=== PATIENT | female | born 1940 | race Caucasian/White ===

== ENCOUNTER 2016-10-08 08:00 | Emergency (ER) | payer MEDICARE, MEDICAID ==
--- NOTE | 2016-10-08 09:19 | ER Document Report ---
ED Fall - General Chief Complaint: Fall Stated Complaint: FALL/LUMBAR PAIN Time seen by provider: 09:13 Mode of Arrival: Medic Information source: Patient Notes: 75-year-old female presents to ED from [facility] via EMS after she stated she fell. Where her pain is has moved multiple times while she was here when I assessed her there was no tenderness except for to the right ankle which now does not hurt. TRAVEL OUTSIDE OF THE [place] IN LAST 30 DAYS: No - HPI Occurred: This morning Where: Care Home Context: Lost balance Associated symptoms: None Location of injury/pain: Lower extremity - Stated her right ankle hurts now the right ankle does not hurt the left ankle hurts neither one are swelling bruised or tender to palpation. Quality of pain: Achy - Related data Allergies/Adverse Reactions: No Known Allergies Allergy (Verified 04/09/15 12:40) Home Medications: Current Home Medications Cetirizine HCl [Zyrtec] 10 mg PO DAILY 10/08/16 [History] Clobetasol Propionate/Emoll [Clobetasol Emollnt 0.05% Foam] 1 applic TP BID [History] Diphenhydramine HCl [Allergy Relief] 25 mg PO Q6H PRN 10/08/16 [History] Lisinopril [Prinivil 10 mg Tablet] 10 mg PO DAILY 10/08/16 [History] Loperamide HCl [Loperamide] 1 mg PO PRN PRN 10/08/16 [History] Triamcinolone Acetonide [Aristocort 0.025% Cream 15 gm] 1 applic TP BID [History] Past Medical History - General Information source: Patient - Social History Smoking Status: Never Smoker Cigarette use (# per day): No Smoking Education Provided: No Frequency of alcohol use: None Drug Abuse: None Lives with: Care Home Family History: Reviewed & Not Pertinent - Past Medical History Cardiac Medical History: Reports: Hx Hypercholesterolemia, Hx Hypertension Pulmonary Medical History: Reports: Hx Pneumonia Endocrine Medical History: Reports: Hx Diabetes Mellitus Type 2 Renal/ Medical History: Reports: None Malignancy Medical History: Reports: None GI Medical History: Reports: Hx Gastroesophageal Reflux Disease Musculoskeltal Medical History: Reports None Skin Medical History: Reports None Psychiatric Medical History: Reports: Hx Bipolar Disorder, Hx Schizophrenia Traumatic Medical History: Reports: Hx Spine Fracture - Compression lumbar fracture Infectious Medical History: Reports: None Past Surgical History: Reports: Hx Tubal Ligation - Immunizations Hx Diphtheria, Pertussis, Tetanus Vaccination: Yes Hx Pneumococcal Vaccination: 04/23/10 Review of Systems - Review of Systems Constitutional: No symptoms reported EENT: No symptoms reported Cardiovascular: No symptoms reported Respiratory: No symptoms reported Gastrointestinal: No symptoms reported Genitourinary: No symptoms reported Female Genitourinary: No symptoms reported Musculoskeletal: Back pain, Other - States she has pain and a different area each time you go and assess the Skin: No symptoms reported Hematologic/Lymphatic: No symptoms reported Neurological/Psychological: No symptoms reported -: Yes All other systems reviewed and negative Physical Exam - Vital signs Vitals: Temp Pulse Resp BP Pulse Ox 98.5 F 67 16 180/60 H 96 10/08/16 08:20 10/08/16 08:20 10/08/16 08:20 10/08/16 08:20 10/08/16 08:20 Interpretation: Normal - General General appearance: Appears well, Alert - HEENT Head: Normocephalic, Atraumatic Eyes: Normal Pupils: PERRL - Respiratory Respiratory status: No respiratory distress Chest status: Nontender Breath sounds: Normal Chest palpation: Normal - Cardiovascular Rhythm: Regular Heart sounds: Normal auscultation Murmur: No - Abdominal Inspection: Normal Distension: No distension Bowel sounds: Normal Tenderness: Nontender Organomegaly: No organomegaly - Back Back: Normal, Nontender. No: Tender, Deformity/step-off, CVA tenderness, Vertebra tenderness - Extremities General upper extremity: Normal inspection, Nontender, Normal color, Normal ROM , Normal temperature General lower extremity: Normal inspection, Nontender, Normal color, Normal ROM , Normal temperature, Normal weight bearing. No: Ca's sign - Neurological Neuro grossly intact: Yes Cognition: Normal Orientation: AAOx4 [place] Coma Scale Eye Opening: Spontaneous [place] Coma Scale Verbal: Oriented [place] Coma Scale Motor: Obeys Commands [place] Coma Scale Total: 15 Speech: Normal Motor strength normal: LUE, RUE, LLE, RLE Sensory: Normal - Psychological Associated symptoms: Normal affect, Normal mood - Skin Skin Temperature: Warm Skin Moisture: Dry Skin Color: Normal Course - Vital Signs Vital signs: Temp Pulse Resp BP Pulse Ox 98.1 F 70 18 158/62 H 96 10/08/16 10:19 10/08/16 10:19 10/08/16 10:19 10/08/16 10:19 10/08/16 10:19 - Diagnostic Test Radiology reviewed: Image reviewed, Reports reviewed Discharge - Discharge Clinical Impression: Fall Qualifiers: Encounter type: initial encounter Qualified Code(s): W19.XXXA - Unspecified fall, initial encounter Low back pain Qualifiers: Chronicity: chronic Back pain laterality: unspecified Sciatica presence: without sciatica Qualified Code(s): M54.5 - Low back pain Condition: Stable Disposition: HOME-SNF (ED ONLY) Instructions: Acetaminophen, Ibuprofen (General) ([facility]) Additional Instructions: LOW BACK PAIN: Three out of every four people will have an episode of disabling back pain during their lifetime. Most commonly the pain is due to straining of the muscles and ligaments in the low back. Usual treatment includes: (1) Rest on a firm surface. Avoid lying on your stomach. (2) Ice pack the painful area. After a few days, gentle heat may be used intermittently to relax the area, or ice packs can be continued. (3) Medication may be needed -- muscle relaxers and antiinflammatory medicines are commonly used. (4) As the back improves, exercises are prescribed to strengthen the back and abdominal muscles. Your doctor will advise you on the proper care for your back at each stage in your recovery. You may be better in a few days -- or healing may take several weeks. If new symptoms of a "herniated disc" (radiation of pain, numbness, or tingling down the back of the leg or weakness in the leg) occur, you should be re-examined. Further testing may be necessary. Chronic Back Pain Chronic back pain (pain persisting longer than three months) is a common problem. A medical evaluation can look for herniated disc, arthritis, osteoporosis, tumors, and infections. But at least half the time, there's no obvious treatable cause. Anxiety and depression tend to worsen back pain. Ibuprofen or other anti-inflammatory medicine can help. A heating pad, used for 15-20 minutes at a time, can ease pain. For this type of back pain, narcotic medicines should be avoided. Muscle relaxers are rarely helpful unless you're having spasms. Activity is important. Find an aerobic exercise program that your back can tolerate. Too much rest makes back pain worse. Specific back exercises are usually prescribed to strengthen the back and abdominal muscles. Often, a physical therapist can help. Avoid heavy lifting, working while bent over, or standing with both knees straight. Most back pain patients do better with a firm mattress. If new symptoms of a "herniated disc" (radiation of pain, numbness, or tingling down the back of the leg or weakness in the leg) occur, you should be re-examined. ICE PACKS: Apply ice packs frequently against the painful area. Many different schedules are recommended, such as "20 minutes on, 20 minutes off" or "one hour ice, two hours rest." If you need to work, you may need to go longer between ice treatments. You should plan to have the area ice packed AT LEAST one fourth of the time. The ice should be applied over the wrap, tape, or splint, or over a layer of cloth -- not directly against the skin. Some ice bags have a built-in cloth and can be put directly on the skin. WARM PACKS: After approximately two days, apply gentle heat (such as a heating pad or hot water bottle) for about 20 to 30 minutes about every two hours -- at least four times daily. Warmth and elevation will help you make a more rapid recovery , and will ease the pain considerably. Do not use HOT heat, and never apply heat for longer than 30 minutes. The continuous heat can invisibly damage skin and muscles -- even when no burn is seen on the surface. Damaged muscles can make you MORE sore. Continue all previously ordered treatments and follow-up with primary doctor within the next 24-48 hours. FOLLOW-UP CARE: If you have been referred to a physician for follow-up care, call the physician s office for an appointment as you were instructed or within the next two days. If you experience worsening or a significant change in your symptoms, notify the physician immediately or return to the Emergency Department at any time for re-evaluation.
[2016-10-08 10:22] VITALS: BP 158/62
== END 2016-10-08 10:19 ==
LOC: ER 08:00
DX: M54.5 Low back pain (principal); W19.XXXA Unspecified fall, initial encounter; Z79.899 Other long term (current) drug therapy
CPT/HCPCS: 72110; 99284

== ENCOUNTER 2016-12-20 09:25 | Emergency (ER) | payer MEDICARE, MEDICAID ==
--- NOTE | 2016-12-20 09:52 | ER Document Report ---
ED Dizziness/Weakness - General Chief Complaint: General Weakness Stated Complaint: GENERAL WEAKNESS Time Seen by Provider: 12/20/16 09:35 Mode of Arrival: Medic Information source: Patient, Transfer Record Notes: Patient is a resident of [facility] [address] and half reports that this morning at 7: 00 patient was feeling fine and was given her usual medications including lorazepam and her blood pressure pill lisinopril. Patient around 9 became dizzy with increased drowsiness and her blood pressure at the time was 99/46 which prompted the staff to call EMS. Patient presently normotensive and denies any complaints. She reports she has had a cough for the past 2 days. TRAVEL OUTSIDE OF THE [place] IN LAST 30 DAYS: No - HPI Patient complains to provider of: Dizziness, Other - Increased fatigue, hypotension Onset: This morning Onset/Duration: Gone Quality of pain: No pain Pain Level: Denies Associated symptoms: Dizzy, Other - drowsiness. denies: Chest pain, Confused, Diarrhea, Nausea, Palpitations - Related Data Allergies/Adverse Reactions: No Known Allergies Allergy (Verified 04/09/15 12:40) Past Medical History - General Information source: Patient, Transfer Record, Outside Facility Records - Social History Smoking Status: Never Smoker Frequency of alcohol use: None Drug Abuse: None Lives with: [facility]-Way Family History: Reviewed & Not Pertinent - Past Medical History Cardiac Medical History: Reports: Hx Hypercholesterolemia, Hx Hypertension Pulmonary Medical History: Reports: Hx Pneumonia Denies: Hx Tuberculosis Endocrine Medical History: Reports: Hx Diabetes Mellitus Type 2 GI Medical History: Reports: Hx Gastroesophageal Reflux Disease Psychiatric Medical History: Reports: Hx Anxiety, Hx Bipolar Disorder, Hx Schizophrenia Traumatic Medical History: Reports: Hx Spine Fracture - Compression lumbar fracture Past Surgical History: Reports: Hx Tubal Ligation - Immunizations Hx Diphtheria, Pertussis, Tetanus Vaccination: Yes Hx Pneumococcal Vaccination: 04/23/10 Review of Systems - Review of Systems Constitutional: No symptoms reported. denies: Fever, Recent illness EENT: No symptoms reported Cardiovascular: Dizziness. denies: Chest pain, Palpitations Respiratory: Cough. denies: Short of breath Gastrointestinal: No symptoms reported. denies: Abdominal pain, Diarrhea, Nausea, Vomiting Genitourinary: No symptoms reported. denies: Dysuria, Flank pain Female Genitourinary: No symptoms reported Musculoskeletal: No symptoms reported. denies: Back pain Skin: No symptoms reported Hematologic/Lymphatic: No symptoms reported Neurological/Psychological: Other - drowsy. denies: Confusion, Lost consciousness, Headaches Physical Exam - Vital signs Vitals: Resp BP Pulse Ox 29 H 154/93 H 93 12/20/16 09:35 12/20/16 09:35 12/20/16 09:35 - General General appearance: Appears well, Alert In distress: None - HEENT Head: Normocephalic, Atraumatic Eyes: Normal Conjunctiva: Normal Pupils: PERRL Nasal: Normal Mouth/Lips: Normal Mucous membranes: Normal - Respiratory Respiratory status: No respiratory distress Chest status: Nontender Breath sounds: Normal. No: Rales, Rhonchi, Stridor, Wheezing Chest palpation: Normal - Cardiovascular Rhythm: Regular Heart sounds: S1 appreciated, S2 appreciated Murmur: No - Abdominal Inspection: Normal Distension: No distension Bowel sounds: Normal Tenderness: Nontender Organomegaly: No organomegaly - Back Back: Normal, Nontender. No: CVA tenderness - Extremities General upper extremity: Normal inspection, Normal ROM General lower extremity: Normal inspection, Normal ROM - Neurological Neuro grossly intact: Yes [place] Coma Scale Eye Opening: Spontaneous [place] Coma Scale Verbal: Oriented [place] Coma Scale Motor: Obeys Commands [place] Coma Scale Total: 15 - Psychological Associated symptoms: Normal affect, Normal mood - Skin Skin Temperature: Warm Skin Moisture: Dry Skin Color: Normal Course - Re-evaluation Re-evalutation: 12/20/16 09:54 spoke with Tarcey at [facility] that the patient was given her usual medications including Ativan and her blood pressure medicine around 7 this morning. Patient became dizzy with increased drowsiness around 9:00 and her blood pressure at the time was 99/46, which prompted her transfer to [facility]. Tracey patient's roommate did recently get admitted to the hospital, and is uncertain if this may be stressing patient out. - Vital Signs Vital signs: Temp Pulse Resp BP Pulse Ox 97.4 F 76 17 173/68 H 94 12/20/16 09:38 12/20/16 09:38 12/20/16 12:01 12/20/16 12:01 12/20/16 12:01 - Laboratory Result Diagrams: 12/20/16 09:38 12/20/16 09:38 Laboratory results interpreted by me: 05/30/17 05/30/17 05/30/17 09:38 09:38 11:11 RBC 3.23 L Hgb 10.8 L Hct 31.2 L Sodium 130.7 L Chloride 95 L Est GFR (Non-Af Amer) 55 L Glucose 174 H Creatine Kinase 28 L Urine Blood SMALL H Discharge - Discharge Clinical Impression: Cough, Wheezing, Hypotensive episode, Chronic hyponatremia Condition: Stable Disposition: [facility] Instructions: Hyponatremia ([facility]), Upper Respiratory Illness ([facility]), Inhaled Bronchodilators ([facility]) Additional Instructions: Your sodium level was mildly decreased today, with your primary doctor to have this reevaluated. You had mild wheezing with your cough today, use your nebulizer machine that you have at home as directed. Your blood pressure readings were normal to mildly elevated while here in the emergency department today. At home for house they reported that your blood pressure was low at 99/46, although we have not recorded any low blood pressure readings here today. Return as needed for any new or worsening symptoms. Call your doctor today to make follow up appointment for a recheck. Prescriptions: Albuterol Sulfate [Ventolin 0.083% Neb 2.5 mg/3 ml Ampul] 1 vial NEB Q4 PRN #30 vial PRN Reason: Prednisone [Deltasone 20 mg Tablet] 2 tab PO DAILY 5 Days Referrals: MAYA BHAKTA PA-C [NO LOCAL MD] - Follow up tomorrow
[2016-12-20 10:02] LABS: ABSOLUTE EOSINOPHILS # (AUTO) 0.2 10^3/uL (0.0-0.6); ABSOLUTE LYMPHOCYTES (AUTO) 0.6 10^3/uL (0.5-4.7); ABSOLUTE MONOCYTES (AUTO) 0.4 10^3/uL (0.1-1.4); ABSOLUTE NEUT (AUTO) 3.4 10^3/uL (1.7-8.2); BASOPHILS % (AUTO) 0.9 % (0-2); EOSINOPHILS % (AUTO) 3.9 % (0-6); HEMATOCRIT 31.2 % (36.0-47.0); HEMOGLOBIN 10.8 g/dL (12.0-15.5); HGB HCT DIFFERENCE 1.2; LYMPHOCYTES % (AUTO) 13.4 % (13-45); MEAN CORPUSCULAR HEMOGLOBIN 33.3 pg (27.0-33.4); MEAN CORPUSCULAR HGB CONC 34.5 g/dL (32.0-36.0); MEAN CORPUSCULAR VOLUME 96 fl (80-97); MONOCYTES % (AUTO) 7.8 % (3-13); RED BLOOD COUNT 3.23 10^6/uL (3.72-5.28); RED CELL DISTRIBUTION WIDTH 12.1 % (11.5-14.0); WHITE BLOOD COUNT 4.6 10^3/uL (4.0-10.5)
--- NOTE | 2016-12-20 10:06 | EKG REPORT ---
SEVERITY:- ABNORMAL ECG - SINUS RHYTHM LEFT VENTRICULAR HYPERTROPHY : Confirmed by: Torsten Steele 20-Dec-2016 10:05:42
--- NOTE | 2016-12-20 10:17 | RADIOLOGY REPORT (SQ) ---
EXAM DESCRIPTION: CHEST SINGLE VIEW COMPLETED DATE/TIME: 12/20/2016 10:05 am REASON FOR STUDY: cough COMPARISON: 08/25/2015 EXAM PARAMETERS: NUMBER OF VIEWS: One view. TECHNIQUE: Single frontal radiographic view of the chest acquired. RADIATION DOSE: NA LIMITATIONS: None. FINDINGS: LUNGS AND PLEURA: There appear to be chronic interstitial lung changes. There is lucency in the apices and in the right base. No pulmonary infiltrate or pleural effusion is present. MEDIASTINUM AND HILAR STRUCTURES: No masses. Contour normal. HEART AND VASCULAR STRUCTURES: Heart normal in size. Normal vasculature. BONES: No acute findings. HARDWARE: None in the chest. OTHER: No other significant finding. IMPRESSION: Chronic lung changes with interstitial changes and emphysematous changes in the apices a nd in the right base. TECHNICAL DOCUMENTATION: JOB ID: [id number]
[2016-12-20] MEDS ORDERED: IPRATROPIUM/ALBUTEROL 0.5-2.5 MG/3 ML AMPUL NEB ONE (10:21)
[2016-12-20 10:35] LABS: ALANINE AMINOTRANSFERASE 19 U/L (9-52); ALBUMIN 3.7 g/dL (3.5-5.0); ALKALINE PHOSPHATASE 44 U/L (38-126); ANION GAP 9 (5-19); ASPARTATE AMINO TRANSFERASE 19 U/L (14-36); BILIRUBIN,DIRECT 0.3 mg/dL (0.0-0.4); BILIRUBIN,TOTAL 0.6 mg/dL (0.2-1.3); BLOOD UREA NITROGEN 16 mg/dL (7-20); CALCIUM 9.2 mg/dL (8.4-10.2); CARBON DIOXIDE 27 mmol/L (22-30); CHLORIDE 95 mmol/L (98-107); CREATINE KINASE 28 U/L (30-135); CREATININE RESULT 0.98 mg/dL (0.52-1.25); GLUCOSE 174 mg/dL (75-110); MAGNESIUM 1.7 mg/dL (1.6-2.3); POTASSIUM 4.5 mmol/L (3.6-5.0); SODIUM 130.7 mmol/L (137-145); TOTAL PROTEIN 6.8 g/dL (6.3-8.2)
[2016-12-20 10:45] LABS: CREATINE KINASE MB 0.59 ng/mL (<4.55)
[2016-12-20 10:49] LABS: TROPONIN I < 0.012 ng/mL
[2016-12-20 11:40] LABS: APPEARANCE,URINE CLEAR; BILIRUBIN,URINE NEGATIVE (NEGATIVE); GLUCOSE, URINE NEGATIVE (NEGATIVE); KETONES,URINE NEGATIVE (NEGATIVE); LEUKOCYTE ESTERASE,URINE NEGATIVE (NEGATIVE); NITRITE,URINE NEGATIVE (NEGATIVE); PROTEIN,URINE NEGATIVE (NEGATIVE); URINE SPECIFIC GRAVITY 1.006; UROBILINOGEN,URINE NEGATIVE mg/dL (<2.0)
[2016-12-20 12:28] VITALS: BP 173/68
== END 2016-12-20 12:31 ==
LOC: ER 09:25
DX: R05 Cough (principal); R06.2 Wheezing; I95.9 Hypotension, unspecified; E87.1 Hypo-osmolality and hyponatremia; R53.1 Weakness; E78.00 Pure hypercholesterolemia, unspecified; I10 Essential (primary) hypertension; E11.9 Type 2 diabetes mellitus without complications; Z98.51 Tubal ligation status
CPT/HCPCS: 93005; 99285; 36415; 87086; 82553; 82550; 83735; 84443; 85025; 87088; 80053; 81001; 84484; 87186; 71010; 93010; A9270; J7620

== ENCOUNTER → 2017-01-10 | Outpatient (CLI) | payer MEDICARE, MEDICAID ==
[2017-01-11 07:49] LABS: ANION GAP 9 (5-19); BLOOD UREA NITROGEN 19 mg/dL (7-20); CALCIUM 9.2 mg/dL (8.4-10.2); CARBON DIOXIDE 25 mmol/L (22-30); CHLORIDE 96 mmol/L (98-107); CREATININE RESULT 1.02 mg/dL (0.52-1.25); GLUCOSE 93 mg/dL (75-110); POTASSIUM 4.4 mmol/L (3.6-5.0); SODIUM 129.9 mmol/L (137-145)
== END ==
LOC: OH 12:56
PROVIDERS: ATTEND Physician Assistant
DX: E87.1 Hypo-osmolality and hyponatremia (principal); I95.9 Hypotension, unspecified; N18.9 Chronic kidney disease, unspecified
CPT/HCPCS: 36415; 80048

== ENCOUNTER 2017-01-30 15:17 | Emergency (ER) | payer MEDICARE, MEDICAID ==
[2017-01-30] MEDS ORDERED: ASPIRIN 81 MG TABLET, CHEWABLE PO ONE (16:32)
[2017-01-30] MEDS ORDERED: CLONIDINE HCL 0.1 MG TABLET PO ONE ×2 (16:32→19:10)
--- NOTE | 2017-01-30 16:33 | ER Document Report ---
ED Medical Screen (RME) - General Chief Complaint: Blood Pressure Problem Stated Complaint: BLOOD PRESSURE CONCERNS Time Seen by Provider: 01/30/17 16:29 Mode of Arrival: Medic Information source: Patient, Emergency Med Personnel, Outside Facility Records Cannot obtain history due to: Dementia Notes: 76-year-old female history of dementia presents from care facility with concerns of a blood pressure 190/100, patient has a history of hypertension and is on lisinopril patient admits to chest pain but then when reevaluated admits to abdominal pain and then 1 reevaluate denies any pain I have greeted and performed a rapid initial assessment of this patient. A comprehensive ED assessment and evaluation of the patient, analysis of test results and completion of the medical decision making process will be conducted by additional ED providers. PHYSICAL EXAMINATION: GENERAL: Well-appearing, well-nourished and in no acute distress. HEAD: Atraumatic, normocephalic. EYES: Pupils equal round extraocular movements intact, conjunctiva are normal. ENT: Nares patent NECK: Normal range of motion LUNGS: No respiratory distress Musculoskeletal: Normal range of motion NEUROLOGICAL: Normal speech, normal gait. PSYCH: Normal mood, normal affect. SKIN: Warm, Dry, normal turgor, no rashes or lesions noted. TRAVEL OUTSIDE OF THE [place] IN LAST 30 DAYS: No - Related Data Allergies/Adverse Reactions: No Known Allergies Allergy (Verified 04/09/15 12:40) Past Medical History - Past Medical History Cardiac Medical History: Reports: Hx Hypercholesterolemia, Hx Hypertension Pulmonary Medical History: Reports: Hx Pneumonia Denies: Hx Tuberculosis Endocrine Medical History: Reports: Hx Diabetes Mellitus Type 2 Renal/ Medical History: Denies: Hx Peritoneal Dialysis GI Medical History: Reports: Hx Gastroesophageal Reflux Disease Psychiatric Medical History: Reports: Hx Anxiety, Hx Bipolar Disorder, Hx Schizophrenia Traumatic Medical History: Reports: Hx Spine Fracture - Compression lumbar fracture Past Surgical History: Reports: Hx Tubal Ligation - Immunizations Hx Diphtheria, Pertussis, Tetanus Vaccination: Yes
[2017-01-30] MEDS ORDERED: ONDANSETRON 4 MG TAB.RAPDIS PO ONE (16:40)
--- NOTE | 2017-01-30 17:25 | RADIOLOGY REPORT (SQ) ---
EXAM DESCRIPTION: CHEST SINGLE VIEW COMPLETED DATE/TIME: 01/30/2017 5:17 pm REASON FOR STUDY: htn COMPARISON: 12/20/2016 and 08/25/2015 EXAM PARAMETERS: NUMBER OF VIEWS: One view. TECHNIQUE: Single frontal radiographic view of the chest acquired. RADIATION DOSE: NA LIMITATIONS: None. FINDINGS: LUNGS AND PLEURA: Stable chronic lung change without new opacities, masses or pneumothorax . No pleural effusion. MEDIASTINUM AND HILAR STRUCTURES: No masses. Contour normal. HEART AND VASCULAR STRUCTURES: Heart normal in size. Normal vasculature. BONES: No acute findings. HARDWARE: None in the chest. OTHER: No other significant finding. IMPRESSION: NO ACUTE CARDIOPULMONARY PROCESS. NO SIGNIFICANT CHANGE FROM PRIOR STUDY. TECHNICAL DOCUMENTATION: JOB ID: [id number]
[2017-01-30 17:58] LABS: ABSOLUTE EOSINOPHILS # (AUTO) 0.2 10^3/uL (0.0-0.6); ABSOLUTE LYMPHOCYTES (AUTO) 1.3 10^3/uL (0.5-4.7); ABSOLUTE MONOCYTES (AUTO) 0.5 10^3/uL (0.1-1.4); ABSOLUTE NEUT (AUTO) 2.4 10^3/uL (1.7-8.2); BASOPHILS % (AUTO) 0.6 % (0-2); EOSINOPHILS % (AUTO) 4.1 % (0-6); HEMATOCRIT 35.2 % (36.0-47.0); HEMOGLOBIN 11.9 g/dL (12.0-15.5); HGB HCT DIFFERENCE 0.5; LYMPHOCYTES % (AUTO) 29.1 % (13-45); MEAN CORPUSCULAR HEMOGLOBIN 32.5 pg (27.0-33.4); MEAN CORPUSCULAR HGB CONC 33.9 g/dL (32.0-36.0); MEAN CORPUSCULAR VOLUME 96 fl (80-97); MONOCYTES % (AUTO) 10.7 % (3-13); RED BLOOD COUNT 3.67 10^6/uL (3.72-5.28); RED CELL DISTRIBUTION WIDTH 12.3 % (11.5-14.0); SEGMENTED NEUTROPHILS % (AUTO) 55.5 % (42-78); WHITE BLOOD COUNT 4.3 10^3/uL (4.0-10.5)
--- NOTE | 2017-01-30 18:04 | ER Document Report ---
ED Blood Pressure Problem - General Mode of Arrival: Medic Information source: Patient, Outside Facility Records TRAVEL OUTSIDE OF THE [place] IN LAST 30 DAYS: No - HPI Patient complains to provider of: High blood pressure Associated symptoms: Other - See above <JOEL DE ANDA - Last Filed: 01/30/17 19:13> <FIGUEROA MCDONALD - Last Filed: 01/30/17 23:06> - General Chief Complaint: Blood Pressure Problem Stated Complaint: BLOOD PRESSURE CONCERNS Time Seen by Provider: 01/30/17 16:29 Notes: Patient is a 76 year old female, with a past medical history including hypertension, who presents to the emergency department via EMS from [facility] for high blood pressure. Per [facility] patient had a blood pressure of 198/100 today. Family at bedside are unsure if patient has received her Lisinopril today and have seen the staff at [facility] administer wrong doses before. Family is also concerned about patient's chest congestion that has been there for a month, they believe she is not receiving any breathing treatments at the facility which are ordered as PRN. (JOEL DE ANDA) - Related Data Allergies/Adverse Reactions: No Known Allergies Allergy (Verified 04/09/15 12:40) Past Medical History - General Information source: Patient, Emergency Med Personnel, Outside Facility Records - Social History Smoking Status: Never Smoker Chew tobacco use (# tins/day): No Frequency of alcohol use: None Drug Abuse: None Family History: Reviewed & Not Pertinent Patient has suicidal ideation: No Patient has homicidal ideation: No - Past Medical History Cardiac Medical History: Reports: Hx Hypercholesterolemia, Hx Hypertension Pulmonary Medical History: Reports: Hx Pneumonia Endocrine Medical History: Reports: Hx Diabetes Mellitus Type 2 GI Medical History: Reports: Hx Gastroesophageal Reflux Disease Psychiatric Medical History: Reports: Hx Anxiety, Hx Bipolar Disorder, Hx Schizophrenia Traumatic Medical History: Reports: Hx Spine Fracture - Compression lumbar fracture Past Surgical History: Reports: Hx Tubal Ligation - Immunizations Hx Diphtheria, Pertussis, Tetanus Vaccination: Yes Hx Pneumococcal Vaccination: 04/23/10 <JOEL DE ANDA - Last Filed: 01/30/17 19:13> Review of Systems - Review of Systems Constitutional: No symptoms reported EENT: No symptoms reported Cardiovascular: See HPI, Other - HTN Respiratory: See HPI, Other - Congestion Gastrointestinal: No symptoms reported Genitourinary: No symptoms reported Female Genitourinary: No symptoms reported Musculoskeletal: No symptoms reported Skin: No symptoms reported Hematologic/Lymphatic: No symptoms reported Neurological/Psychological: No symptoms reported -: Yes All other systems reviewed and negative <JEOL DE ANDA - Last Filed: 01/30/17 19:13> Physical Exam - Vital signs Interpretation: Hypertensive - General General appearance: Appears well, Alert, Other - Slightly demented, pleasant - HEENT Head: Normocephalic, Atraumatic - Respiratory Respiratory status: No respiratory distress Chest status: Nontender Breath sounds: Rhonchi, Wheezing Chest palpation: Normal - Cardiovascular Rhythm: Regular Heart sounds: Normal auscultation Murmur: No - Back Back: Normal, Nontender - Extremities General upper extremity: Normal inspection General lower extremity: Normal inspection - Neurological Neuro grossly intact: Yes Cognition: Normal Orientation: AAOx4 [place] Coma Scale Eye Opening: Spontaneous B[place] Coma Scale Verbal: Oriented Bienvenido Coma Scale Motor: Obeys Commands Bienvenido Coma Scale Total: 15 Speech: Normal - Psychological Associated symptoms: Normal affect, Normal mood - Skin Skin Temperature: Warm Skin Moisture: Dry Skin Color: Normal <JOEL DE ANDA - Last Filed: 01/30/17 19:13> Course - Laboratory Result Diagrams: 01/30/17 17:46 01/30/17 17:46 <JOEL DE ANDA - Last Filed: 01/30/17 19:13> - Laboratory Result Diagrams: 01/30/17 17:46 01/30/17 17:46 - Diagnostic Test Radiology reviewed: Image reviewed, Reports reviewed - Changes - EKG Interpretation by Me EKG shows normal: Sinus rhythm, [place], Intervals, QRS Complexes, ST-T Waves Rate: Normal - 69 Rhythm: NSR Voltage: Consistant with LVH <FIGUEROA MCDONALD - Last Filed: 01/30/17 23:06> - Re-evaluation Re-evalutation: 01/30/17 21:02 Blood pressure is now 152/60 after 2 doses of clonidine 0.1 mg. Lungs are almost clear now after breathing treatments. 01/30/17 23:05 The patient's oxygen saturation did desaturate when she got up and walk to the bathroom. She was put back on oxygen by the nurse. I turned the oxygen off and watch her for quite some time and her O2 saturations only went down to 93% on room air. I have just now gone back to check on her probably 45 minutes after the first time I turned off her oxygen and she is still at 93% saturation on room air. ( FIGUEROA MCDONALD) - Vital Signs Vital signs: Temp Pulse Resp BP Pulse Ox 22 H 136/53 H 89 L 01/30/17 22:09 01/30/17 22:09 01/30/17 22:28 - Laboratory Laboratory results interpreted by me: 01/30/17 01/30/17 17:46 17:46 RBC 3.67 L Hgb 11.9 L Hct 35.2 L Sodium 125.1 L Chloride 89 L Est GFR (Non-Af Amer) 54 L Glucose 122 H Creatine Kinase 28 L Discharge <JOEL DE ANDA - Last Filed: 01/30/17 19:13> <FIGUEROA MCDONALD - Last Filed: 01/30/17 23:06> - Discharge Clinical Impression: High blood pressure Qualifiers: Hypertension type: essential hypertension Qualified Code(s): I10 - Essential ( primary) hypertension COPD (chronic obstructive pulmonary disease) Qualifiers: COPD type: unspecified COPD Qualified Code(s): J44.9 - Chronic obstructive pulmonary disease, unspecified Condition: Stable Disposition: HOME, SELF-CARE Additional Instructions: Please give the breathing treatments every 4 hours as needed. You will need to listen to her lungs to determine if she needs the breathing treatments. Check blood pressure tomorrow and if it remains elevated, call her primary care provider to discuss medication changes. RETURN TO THE EMERGENCY ROOM IF ANY NEW OR WORSENING SYMPTOMS. Referrals: KYAW LICONA, DIRECTOR OF DIVERSITY AND IN[facility] [Primary Care Provider] - Follow up as needed Scribe Attestation: 01/30/17 21:05 I personally performed the services described in the documentation, reviewed and edited the documentation which was dictated to the scribe in my presence, and it accurately records my words and actions. (FIGUEROA MCDONALD) Scribe Documentation - Scribe Written by Lior:: lior Forde, 01/30/17, 191 acting as scribe for :: Margarita <JOEL DE ANDA - Last Filed: 01/30/17 19:13>
[2017-01-30 18:15] LABS: ALANINE AMINOTRANSFERASE 25 U/L (9-52); ALBUMIN 4.2 g/dL (3.5-5.0); ALKALINE PHOSPHATASE 65 U/L (38-126); ANION GAP 11 (5-19); ASPARTATE AMINO TRANSFERASE 19 U/L (14-36); BILIRUBIN,DIRECT 0.3 mg/dL (0.0-0.4); BILIRUBIN,TOTAL 0.4 mg/dL (0.2-1.3); BLOOD UREA NITROGEN 15 mg/dL (7-20); CARBON DIOXIDE 25 mmol/L (22-30); CHLORIDE 89 mmol/L (98-107); CREATINE KINASE 28 U/L (30-135); CREATININE RESULT 0.99 mg/dL (0.52-1.25); GLUCOSE 122 mg/dL (75-110); POTASSIUM 4.7 mmol/L (3.6-5.0); SODIUM 125.1 mmol/L (137-145); TOTAL PROTEIN 7.7 g/dL (6.3-8.2)
[2017-01-30 18:25] LABS: CREATINE KINASE MB 0.73 ng/mL (<4.55)
[2017-01-30 18:27] LABS: TROPONIN I < 0.012 ng/mL
[2017-01-30] MEDS ORDERED: IPRATROPIUM/ALBUTEROL 0.5-2.5 MG/3 ML AMPUL NEB ONE ×2 (18:30→22:04)
[2017-01-30] MEDS ORDERED: ALBUTEROL SULFATE 0.083% NEB 2.5 MG/3 ML AMPUL NEB ONE ×2 (19:10→20:18)
--- NOTE | 2017-01-30 21:12 | EKG REPORT ---
SEVERITY:- ABNORMAL ECG - SINUS RHYTHM LEFT VENTRICULAR HYPERTROPHY ANTERIOR Q WAVES, POSSIBLY DUE TO LVH : Confirmed by: Tj Huber MD 30-Jan-2017 21:12:20
[2017-01-31 04:21] VITALS: BP 128/49
== END 2017-01-31 04:25 | disposition home or self-care (01) ==
LOC: ER 15:17
DX: J44.9 Chronic obstructive pulmonary disease, unspecified (principal); I10 Essential (primary) hypertension
CPT/HCPCS: 93005; 94640 ×2; 99284; 36415; 82553; 82550; 85025; 80053; 84484; 85379; 71010; 93010; A9270 ×5; J7620; S0119

== ENCOUNTER 2017-02-22 10:38 | Inpatient (IN) | payer MEDICARE, MEDICAID ==
--- NOTE | 2017-02-22 11:00 | RADIOLOGY REPORT (SQ) ---
EXAM DESCRIPTION: CT HEAD WITHOUT COMPLETED DATE/TIME: 02/22/2017 10:46 am REASON FOR STUDY: s/s stroke COMPARISON: 08/25/2015 TECHNIQUE: Axial images acquired through the brain without intravenous contrast. Images reviewed wi th bone, brain and subdural windows. Images stored on PACS. All CT scanners at this facility use dose modulation, iterative reconstruction, and/or weight based d osing when appropriate to reduce radiation dose to as low as reasonably achievable (ALARA). [facility]: Dose Right [facility]: CareDose [facility]: Dose Right [facility]: Teradose 4D [facility]: Smart Path101 RADIATION DOSE: Up-to-date CT equipment and radiation dose reduction techniques were employed. CTDIv ol: 48.6 - 49.0 mGy. DLP: 1639 mGy-cm. mGy. LIMITATIONS: None. FINDINGS: VENTRICLES: Normal size and contour. CEREBRUM: Cortical atrophy. Areas of decreased attenuation in the white matter tracts. 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 There is questionable loss of werner/ white differentiation in righ t parietal lobe. No masses. No hemorrhage. No midline shift. No evidence for acute infarction. CEREBELLUM: No masses. No hemorrhage. No alteration of density. No evidence for acute infarction. EXTRAAXIAL SPACES: No fluid collections. No masses. ORBITS AND GLOBE: No intra- or extraconal masses. Normal contour of globe without masses. CALVARIUM: No fracture. PARANASAL SINUSES: No fluid or mucosal thickening. SOFT TISSUES: No mass or hematoma. OTHER: No other significant finding. IMPRESSION: 1. Involutional changes of aging with chronic microvascular ischemic disease. 2. Questionable loss of werner/white differentiation in the right parietal lobe could indicate a devel oping infarct. Correlate clinically. TECHNICAL DOCUMENTATION: JOB ID: [id number] Quality ID # [id number]: Final reports with documentation of one or more dose reduction techniques (e.g., Au tomated exposure control, adjustment of the mA and/or kV according to patient size, use of iterative reconstruction technique) 2010 [employer]- All Rights Reserved
--- NOTE | 2017-02-22 11:05 | ER Document Report ---
ED Neuro Symptoms/Deficit - General Stated Complaint: POSSIBLE STROKE Time Seen by Provider: 02/22/17 10:58 Mode of Arrival: Stretcher Information source: Patient, Emergency Med Personnel TRAVEL OUTSIDE OF THE [place] IN LAST 30 DAYS: No - HPI Patient complains to provider of: Paralysis Onset: This morning - 930 Awoke with symptoms: No Duration: Better Baseline Gait: Walks w/o assistance New weakness: R facial Notes: Patient is a 76-year-old female brought to the emergency room by EMS for possible stroke, patient resides at [facility], her sister brought her home yesterday for a visit, she woke up this morning and everything seemed normal, she walked out to the back deck sat down in a chair, her sister started taking nail serbian off of her hands when she noticed her right arm kept slipping off the chair, she looked at patient and attempted to get a response for her but she did not respond verbally which is typical of patient at times, however patient's sister called EMS, when they arrived they reported right-sided flaccid paralysis, which resolved while in route to the hospital, patient remains nonverbal, has a left-sided gaze, with slight right-sided facial droop, however she is moving her extremities without difficulty, since patient is nonverbal at this point in time it is difficult to obtain further history - Related Data Allergies/Adverse Reactions: No Known Allergies Allergy (Verified 04/09/15 12:40) Home Medications: Current Home Medications Acetaminophen [Mapap] 500 mg PO Q4HP PRN MDD 199902/22/17 [History] Albuterol Sulfate [Albuterol Sulfate 2.5mg/3 mL] 1 vial IH Q4HP PRN 02/22/17 [ History] Aripiprazole [Abilify 15 mg Tablet] 15 mg PO Q12A 02/22/17 [History] Cetirizine HCl [Zyrtec] 10 mg PO DAILYP PRN 02/22/17 [History] Cyanocobalamin (Vitamin B-12) [Vitamin B-12 Inj 1000 Mcg/1 ml Vial] 1,000 mcg IM .MONTHLY 02/22/17 [History] Diphenhydramine HCl [Benadryl] 25 mg PO Q6HP PRN 02/22/17 [History] Divalproex Sodium [Depakote] 125 mg PO QPM 02/22/17 [History] Docusate Sodium [Colace 100 mg Capsule] 100 mg PO DAILY 02/22/17 [History] Lisinopril [Zestril] 10 mg PO QAM 02/22/17 [History] Loperamide HCl [Loperamide] 2 mg PO DAILYP PRN 02/22/17 [History] Lorazepam [Ativan 0.5 mg Tablet] 0.5 mg PO Q8A 02/22/17 [History] Magnesium Hydroxide [Milk of Magnesia 30 ml Udcup] 30 ml PO QPMP PRN 02/22/17 [ History] Omeprazole 40 mg PO QAM 02/22/17 [History] Quetiapine Fumarate [Seroquel 100 mg Tablet] 100 mg PO Q8A 02/22/17 [History] Simvastatin [Zocor 10 mg Tablet] 10 mg PO QPM 02/22/17 [History] Trihexyphenidyl HCl 1 mg PO Q12A 02/22/17 [History] Past Medical History - General Information source: Relative, Emergency Med Personnel - Social History Smoking Status: Unknown if Ever Smoked Family History: Reviewed & Not Pertinent - Past Medical History Cardiac Medical History: Reports: Hx Hypercholesterolemia, Hx Hypertension Pulmonary Medical History: Reports: Hx Pneumonia Denies: Hx Tuberculosis Endocrine Medical History: Reports: Hx Diabetes Mellitus Type 2 Renal/ Medical History: Denies: Hx Peritoneal Dialysis GI Medical History: Reports: Hx Gastroesophageal Reflux Disease Psychiatric Medical History: Reports: Hx Anxiety, Hx Bipolar Disorder, Hx Schizophrenia Traumatic Medical History: Reports: Hx Spine Fracture - Compression lumbar fracture Past Surgical History: Reports: Hx Tubal Ligation - Immunizations Hx Diphtheria, Pertussis, Tetanus Vaccination: Yes Hx Pneumococcal Vaccination: 04/23/10 Review of Systems - Review of Systems -: Yes ROS unobtainable due to patient's medical condition Neurological/Psychological: See HPI Physical Exam - Vital signs Interpretation: Normal - General General appearance: Alert - HEENT Head: Normocephalic, Atraumatic Eyes: Normal Extraocular movements intact: No - left gaze Pupils: PERRL Mucous membranes: Normal Neck: Normal - Respiratory Respiratory status: No respiratory distress Chest status: Nontender Breath sounds: Normal Chest palpation: Normal - Cardiovascular Rhythm: Regular Heart sounds: Normal auscultation Murmur: No - Abdominal Inspection: Normal Distension: No distension Bowel sounds: Normal Tenderness: Nontender Organomegaly: No organomegaly - Extremities General upper extremity: Normal inspection General lower extremity: Normal inspection - Neurological B[place]ven[place] Coma Scale Eye Opening: Spontaneous [place] Coma Scale Verbal: None [place] Coma Scale Motor: Obeys Commands [place] Coma Scale Total: 11 Cranial nerves: Facial palsy - right side, Gaze palsy Additional motor exam normals: Involuntary movements - facial, tardive dyskinesia - Skin Skin Temperature: Warm Skin Moisture: Dry Skin Color: Pale Course - Re-evaluation Re-evalutation: 02/22/17 18:13 Patient symptoms preceding emergency room visit consistent with acute CVA/TIA, at time of my evaluation she continues to have mild right-sided deficits, particularly facial droop, therefore patient was discussed with the hospitalist who agrees to admit for further evaluation and treatment - Laboratory Result Diagrams: 02/22/17 11:25 02/22/17 11:25 - Diagnostic Test Radiology reviewed: Image reviewed, Reports reviewed - EKG Interpretation by Me EKG shows normal: Sinus rhythm Rate: Normal Rhythm: NSR When compared to previous EKG there are: No significant change - Transfer of Care Care transferred to following provider: Dr Shannon Critical Care Note - Critical Care Note Total time excluding time spent on procedures (mins): 30 Comments: Patient arrived as a stroke alert via EMS, with right-sided deficits which appear to be resolving ED Alteplase Inc/Exc Criteria - Date/Time patient last known well: Date/Time: 02/22/2017 0930 - Date/Time patient arrived in ED: _: 02/22/2017 - Inclusion Criteria: 1: Patient presented to ED within 3 hours of acute ischemic stroke symptom onset ? -: Yes 2: Did baseline CT exclude intracranial hemorrhage and/or other risk factors? -: Yes 3: Is the age of the patient 18 years of age or greater? -: Yes : If any of the above questions are answered "NO" then stop, patient is not a candidate for Alteplase, : If all of the above questions are answered "YES" then continue with Exclusion Criteria. - Exclusion Criteria: 1: Is there evidence of intracranial hemorrhage on baseline CT? -: No 2: Is there suspicion of subarachnoid hemorrhage (even if CT negative)? -: No 3: Is there a history of serious head trauma, recent previous stroke or AZ within 3 months? -: No 4: Does the patient have a clinical presentation consistent with AZ or post-AZ pericarditis? -: No 5: Is there history of intracranial hemorrhage? -: No 6: On repeated measurement is Systolic BP greater than 185mmHg or Diastolic BP greater that 110 mmHg and is aggressive treatment needed to reduce blood pressure to these limits (e.g. constant infusion of an anti-hypertensive)? -: No 7: Did the patient awake with stroke symptoms? -: No 8: Has the patient had a lumbar puncture or an arterial puncture at a non- compressile site within 7 days? -: No 9: With in the last 14 days did the patient have surgery or major trauma? -: No 10: Is the patient or less than 2 weeks? -: No 11: Was there any active bleeding or acute trauma? -: No 12: Does the patient have intracranial neoplasm, arteriovenous malformation or aneurysm? -: No 13: Does the patient have abnormal glucose (less than 50 or greater than 400mg/ dl)? Record glucose in Comment. -: No 14: Patient has rapidly improving symptoms at the time Alteplase is to be Administered. -: Yes 15: Does the patient have any risks for bleeding, including but not limited to: a.: Current use of Coumadin with PT greater than 15 seconds or INR greater than 1.7. b.: Current use of Pradaxa (Dabigatran). c.: Heparin administereed within the past 48 hours and PTT elevated. d.: Platelet count less than 100,000/mm. e.: Major surgery or serious trauma within 14 days. f.: Gastrointestinal or gynecological urinary bleeding within 14 days. g.: Myocardial Infarction (AZ) within 3 months. -: No : If the answer to any of the above questions is "YES" then stop, the patient is not a candidate for Alteplase. : If the answer to all of the above questions is "NO" then the patient may be eligible for the Administration of Alteplase. : If the patient is noted to have seizure activity at onset of Stroke symptoms; Consult Neurologist for further evaluation. - The patient is: -: Included and is eligible to receive Alteplase. *Initiate bed placement at higher level of care* --: No Reviewd risks & benefits of thrombolytic therapy: I have reviewed the risks and benefits of thrombolytic therapy with the patient and/or his/her family. -: Excluded and not eligible to receive Alteplase for the above exclusions. --: Yes - symptoms improving -: Excluded and not eligible to receive Alteplase for other reasons (specify in comments): - Diagnosis of TIA: -: Patient presented with transient symptoms that are now resolved and no other neurologic findings are currently present. List symptoms in comments. -: Yes -: Patient is NOT a candidate for tPA. -: Yes -: ____(put name in comment) has been consulted for admission and continued evaluation of risk factor assessment. Comment: Shannon Discharge - Discharge Clinical Impression: TIA (transient ischemic attack) Qualifiers: Transient cerebral ischemia type: unspecified Qualified Code(s): G45.9 - Transient cerebral ischemic attack, unspecified Condition: Fair Disposition: ADMITTED OBSERVATION Admitting Provider: Hospitalist Unit Admitted: [facility]
[2017-02-22 11:35] LABS: ABSOLUTE LYMPHOCYTES (AUTO) 0.3 10^3/uL (0.5-4.7); ABSOLUTE MONOCYTES (AUTO) 0.3 10^3/uL (0.1-1.4); ABSOLUTE NEUT (AUTO) 3.5 10^3/uL (1.7-8.2); BASOPHILS % (AUTO) 0.5 % (0-2); EOSINOPHILS % (AUTO) 0.6 % (0-6); HEMATOCRIT 32.5 % (36.0-47.0); HEMOGLOBIN 11.7 g/dL (12.0-15.5); HGB HCT DIFFERENCE 2.6; LYMPHOCYTES % (AUTO) 7.4 % (13-45); MEAN CORPUSCULAR HEMOGLOBIN 33.9 pg (27.0-33.4); MEAN CORPUSCULAR HGB CONC 35.9 g/dL (32.0-36.0); MEAN CORPUSCULAR VOLUME 95 fl (80-97); MONOCYTES % (AUTO) 6.1 % (3-13); RED BLOOD COUNT 3.44 10^6/uL (3.72-5.28); RED CELL DISTRIBUTION WIDTH 12.4 % (11.5-14.0); SEGMENTED NEUTROPHILS % (AUTO) 85.4 % (42-78); WHITE BLOOD COUNT 4.1 10^3/uL (4.0-10.5)
[2017-02-22 11:40] LABS: PARTIAL THROMBOPLASTIN TIME 22.3 SEC (23.5-35.8)
--- NOTE | 2017-02-22 11:42 | RADIOLOGY REPORT (SQ) ---
EXAM DESCRIPTION: CHEST SINGLE VIEW COMPLETED DATE/TIME: 02/22/2017 11:34 am REASON FOR STUDY: s/s stroke COMPARISON: 01/30/2017 EXAM PARAMETERS: NUMBER OF VIEWS: One view. TECHNIQUE: Single frontal radiographic view of the chest acquired. RADIATION DOSE: NA LIMITATIONS: None. FINDINGS: LUNGS AND PLEURA: Chronic interstitial lung changes are present. These findings are stabl e. There is no acute infiltrate or pleural effusion. MEDIASTINUM AND HILAR STRUCTURES: No masses. Contour normal. HEART AND VASCULAR STRUCTURES: Heart size is borderline. There is no tahira CHF. BONES: No acute findings. HARDWARE: None in the chest. OTHER: No other significant finding. IMPRESSION: Borderline cardiomegaly with chronic interstitial lung changes. TECHNICAL DOCUMENTATION: JOB ID: [id number]
[2017-02-22 11:46] LABS: PROTHROMBIN TIME 12.9 SEC (11.4-15.4)
[2017-02-22 11:50] LABS: ALANINE AMINOTRANSFERASE 22 U/L (9-52); ALBUMIN 3.9 g/dL (3.5-5.0); ALKALINE PHOSPHATASE 53 U/L (38-126); ANION GAP 10 (5-19); ASPARTATE AMINO TRANSFERASE 18 U/L (14-36); BILIRUBIN,DIRECT 0.3 mg/dL (0.0-0.4); BILIRUBIN,TOTAL 0.5 mg/dL (0.2-1.3); BLOOD UREA NITROGEN 12 mg/dL (7-20); CALCIUM 9.2 mg/dL (8.4-10.2); CARBON DIOXIDE 24 mmol/L (22-30); CHLORIDE 92 mmol/L (98-107); CREATINE KINASE 34 U/L (30-135); CREATININE RESULT 0.99 mg/dL (0.52-1.25); GLUCOSE 166 mg/dL (75-110); POTASSIUM 4.4 mmol/L (3.6-5.0); TOTAL PROTEIN 7.2 g/dL (6.3-8.2)
[2017-02-22 11:59] LABS: CREATINE KINASE MB 0.46 ng/mL (<4.55)
[2017-02-22 12:02] LABS: TROPONIN I < 0.012 ng/mL
[2017-02-22] MEDS ORDERED: LABETALOL HCL INJ 20 MG/4 ML DISP.SYRIN IV ONE (13:26)
[2017-02-22] MEDS ORDERED: LORAZEPAM INJ 2 MG/1 ML VIAL IV ONE ×2 (13:29→15:14)
--- NOTE | 2017-02-22 13:35 | EKG REPORT ---
SEVERITY:- ABNORMAL ECG - SINUS RHYTHM PROBABLE LEFT ATRIAL ABNORMALITY LEFT VENTRICULAR HYPERTROPHY ANTERIOR Q WAVES, POSSIBLY DUE TO LVH : Confirmed by: Tj Huber MD 22-Feb-2017 13:34:52
[2017-02-22] MEDS ORDERED: GLUCAGON,HUMAN RECOMB 1 MG INJ SUBCUT PRN (13:54)
[2017-02-22] MEDS ORDERED: DEXTROSE 50%-WATER 25 GM/50 ML DISP.SYRIN IV PRN ×2 (13:54)
[2017-02-22] MEDS ORDERED: DEXTROSE 40% GEL 15 GM TUBE PO PRN ×2 (13:54)
[2017-02-22] MEDS ORDERED: ONDANSETRON HCL INJ/PF 4 MG/2 ML SDV IV PRN (13:54)
[2017-02-22 14:51] LABS: APPEARANCE,URINE CLEAR; BILIRUBIN,URINE NEGATIVE (NEGATIVE); GLUCOSE, URINE NEGATIVE (NEGATIVE); KETONES,URINE NEGATIVE (NEGATIVE); LEUKOCYTE ESTERASE,URINE NEGATIVE (NEGATIVE); NITRITE,URINE NEGATIVE (NEGATIVE); PROTEIN,URINE NEGATIVE (NEGATIVE); URINE SPECIFIC GRAVITY 1.005; UROBILINOGEN,URINE NEGATIVE mg/dL (<2.0)
[2017-02-22] MEDS: HEPARIN SOD (PORCINE) 5,000 UNIT/ML 1 ML SYRINGE SUBCUT SCH ×2 (14:53→22:29)
[2017-02-22] MEDS ORDERED: ASPIRIN 300 MG SUPP, RECTAL PR SCH (15:00)
[2017-02-22] MEDS ORDERED: (PENDING PHARMACY ID) (Cetirizine Hcl [Zyrtec] 10 MG) PO PRN (15:12)
[2017-02-22] MEDS ORDERED: DIPHENHYDRAMINE HCL 50 MG/ML VIAL IV ONE (15:13)
[2017-02-22] MEDS ORDERED: CETIRIZINE 10 MG TABLET PO PRN (15:43)
[2017-02-22] MEDS ORDERED: ASPIRIN 81 MG TABLET, CHEWABLE PO ONE (16:22)
[2017-02-22] MEDS ORDERED: QUETIAPINE FUMARATE 100 MG TABLET PO ONE (16:30)
[2017-02-22 16:41] LABS: CREATINE KINASE MB 0.77 ng/mL (<4.55)
[2017-02-22 16:45] LABS: TROPONIN I < 0.012 ng/mL
--- NOTE | 2017-02-22 16:50 | PDOC H&P ---
History of Present Illness Admission Date/PCP: 02/22/17 13:05 MAYA BHAKTA PA-C History of Present Illness: JÚNIOR LICONA is a 76 year old female with a past medical history of hypertension, schizophrenia, hyperlipidemia, and questionable mental retardationWho presents to the emergency department in the company of her sister via EMS. Sister reports that she was taking nail thai off of her fingernails when patient began having difficulty using her left hand. She then states that her eyes rolled into the back of her head and she has not been talking since that time. She reports that since approximate this happened at 930 this morning and she is only now when I saw her at 3 PM speaking. She reports that patient has been unable to care for herself last 5 years. She reports that over the last several months she is going more feeble. Patient is referred to the hospitalist service for likely CVA. Past Medical History Cardiac Medical History: Reports: Hyperlipidema, Hypertension Pulmonary Medical History: Reports: Pneumonia Denies: Tuberculosis Endocrine Medical History: Reports: Diabetes Mellitus Type 2 GI Medical History: Reports: Gastroesophageal Reflux Disease Psychiatric Medical History: Reports: Bipolar Disorder, Other - Schizophrenia schizophrenia Hematology: Reports: Anemia Past Surgical History Past Surgical History: Reports: Tubal Ligation, Other - Cataract surgery Social History Information Source: Relative Smoking Status: Never Smoker Frequency of Alcohol Use: None Hx Recreational Drug Use: No Hx Prescription Drug Abuse: No - Advance Directive Resuscitation Status: Full Code Surrogate healthcare decision maker:: Ayanna Luu, sister Family History Family History: DM, Hyperlipidemia, Hypertension, Malignancy, Other - Accident Parental Family History Reviewed: Yes Children Family History Reviewed: Yes Sibling(s) Family History Reviewed.: Yes Medication/Allergy Home Medications: Acetaminophen [Mapap] 500 mg PO Q4HP PRN MDD 199902/22/17 Albuterol Sulfate [Albuterol Sulfate 2.5mg/3 mL] 1 vial IH Q4HP PRN 02/22/17 Aripiprazole [Abilify 15 mg Tablet] 15 mg PO Q12A 02/22/17 Cetirizine HCl [Zyrtec] 10 mg PO DAILYP PRN 02/22/17 Cyanocobalamin (Vitamin B-12) [Vitamin B-12 Inj 1000 Mcg/1 ml Vial] 1,000 mcg IM .MONTHLY 02/22/17 Diphenhydramine HCl [Benadryl] 25 mg PO Q6HP PRN 02/22/17 Divalproex Sodium [Depakote] 125 mg PO QPM 02/22/17 Docusate Sodium [Colace 100 mg Capsule] 100 mg PO DAILY 02/22/17 Lisinopril [Zestril] 10 mg PO QAM 02/22/17 Loperamide HCl [Loperamide] 2 mg PO DAILYP PRN 02/22/17 Lorazepam [Ativan 0.5 mg Tablet] 0.5 mg PO Q8A 02/22/17 Magnesium Hydroxide [Milk of Magnesia 30 ml Udcup] 30 ml PO QPMP PRN 02/22/17 Omeprazole 40 mg PO QAM 02/22/17 Quetiapine Fumarate [Seroquel 100 mg Tablet] 100 mg PO Q8A 02/22/17 Simvastatin [Zocor 10 mg Tablet] 10 mg PO QPM 02/22/17 Trihexyphenidyl HCl 1 mg PO Q12A 02/22/17 Allergies/Adverse Reactions: No Known Allergies Allergy (Verified 04/09/15 12:40) Review of Systems ROS unobtainable: Due to mental status Physical Exam Vital Signs: Temp Pulse Resp BP Pulse Ox 97.8 F 19 198/93 H 97 02/22/17 11:00 02/22/17 13:07 02/22/17 13:07 02/22/17 13:07 Intake & Output 02/21/17 02/22/17 02/23/17 06:59 06:59 06:59 Weight 58.4 kg General appearance: PRESENT: mild distress, well-developed, well-nourished Exam: Patient is poorly cooperative with exam Head exam: PRESENT: atraumatic, normocephalic Eye exam: PRESENT: conjunctiva pink, EOMI, PERRLA. ABSENT: scleral icterus Ear exam: PRESENT: normal external ear exam Mouth exam: PRESENT: moist, tongue midline, other - Rhythmic mouth and jaw movements Teeth exam: PRESENT: edentulous Neck exam: ABSENT: carotid bruit, JVD, lymphadenopathy, meningismus, tenderness , thyromegaly, tracheal deviation Respiratory exam: PRESENT: clear to auscultation jorge, symmetrical, unlabored. ABSENT: accessory muscle use, crackles, rales, retraction, rhonchi, stridor, tachypnea, wheezes Cardiovascular exam: PRESENT: RRR, +S1, +S2. ABSENT: diastolic murmur, gallop, rubs, systolic murmur Pulses: PRESENT: normal dorsalis pedis pul Vascular exam: PRESENT: normal capillary refill GI/Abdominal exam: PRESENT: Infante's sign, normal bowel sounds, soft. ABSENT: distended, firm, guarding, mass, organolmegaly, rebound, rigid, tenderness Rectal exam: PRESENT: deferred Extremities exam: PRESENT: full ROM. ABSENT: calf tenderness, clubbing, pedal edema Neurological exam: PRESENT: alert, awake, CN II-XII grossly intact, motor sensory deficit - Mild right-sided weakness. ABSENT: oriented to person, oriented to place, oriented to time - is, oriented to situation Psychiatric exam: PRESENT: agitated, anxious, flat affect Skin exam: PRESENT: dry, intact, warm. ABSENT: cyanosis, rash Results Impressions: Chest X-Ray 02/22/17 10:39 IMPRESSION: Borderline cardiomegaly with chronic interstitial lung changes. Head CT 02/22/17 10:39 IMPRESSION: 1. Involutional changes of aging with chronic microvascular ischemic disease. 2. Questionable loss of werner/white differentiation in the right parietal lobe could indicate a developing infarct. Correlate clinically. Assessment & Plan - Diagnosis (1) TIA (transient ischemic attack) Qualifiers: Transient cerebral ischemia type: unspecified Qualified Code(s): G45.9 - Transient cerebral ischemic attack, unspecified Is this a current diagnosis for this admission?: YesPlan: Patient with transient what is reported to be right-sided flaccid paralysis by EMS and consistent with my examination of right-sided weakness, but left-sided weakness according to family with possible new CVA. Patient also has possible evolution of right-sided parietal stroke. I am concerned that I will be unable to obtain an MRI although I will write for 1. We will give patient 325 mg of aspirin now. And also give patient labetalol for her systolic blood pressure greater than 180. Place patient on Lipitor, and aspirin. Will allow for permissive hypertension for the first 24 hours from this episode. Obtain PT, OT , and speech consults. (2) Schizophrenia Qualifiers: Schizophrenia type: unspecified Qualified Code(s): F20.9 - Schizophrenia, unspecified Is this a current diagnosis for this admission?: YesPlan: Continue patient's home medications including Abilify, Ativan, and Seroquel (3) Hypertensive emergency Is this a current diagnosis for this admission?: YesPlan: Place patient on labetalol 20 mg IV q. 10 minutes as needed systolic blood pressure greater than 180. Resume patient's home lisinopril. Allow for permissive hypertension for the first 24 hours. (4) HTN (hypertension) Qualifiers: Hypertension type: essential hypertension Qualified Code(s): I10 - Essential (primary) hypertension Is this a current diagnosis for this admission?: Yes (5) Tardive dyskinesia Is this a current diagnosis for this admission?: YesPlan: Patient family reports that this has been going on for quite some time. Patient is on Artane. Continue this 1 mg p.o. 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 Have sent patient for urine sodium and urine creatinine. (7) Anemia Qualifiers: Anemia type: unspecified type Qualified Code(s): D64.9 - Anemia, unspecified Is this a current diagnosis for this admission?: YesPlan: Defer to outpatient workup - Time Time Spent: 50 to 70 Minutes Medications reviewed and adjusted accordingly: Yes Anticipated discharge: SNF Within: within 48 hours - Inpatient Certification Based on my medical assessment, after consideration of the patient's comorbidities, presenting symptoms, or acuity I expect that the services needed warrant INPATIENT care.: Yes I certify that my determination is in accordance with my understanding of Medicare's requirements for reasonable and necessary INPATIENT services [42 CFR 412.3e].: Yes Medical Necessity: Need For Continuous Telemetry Monitoring, Need for Neurological Checks Post Hospital Care: D/C Knitting Demonstrator Documentation
[2017-02-22 17:16] LABS: URINE CREATININE 20.1 mg/dL (15-278)
[2017-02-22] MEDS: ARIPIPRAZOLE 5 MG TABLET PO SCH (17:23)
[2017-02-22] MEDS: LORAZEPAM 0.5 MG TABLET PO SCH (17:24)
[2017-02-22] MEDS: TRIHEXYPHENIDYL HCL 2 MG TABLET PO SCH (17:26)
[2017-02-22] MEDS ORDERED: (PENDING PHARMACY ID) (Aripiprazole [Abilify 15 Mg Tablet] 15 MG) PO SCH (18:00)
[2017-02-22] MEDS ORDERED: (PENDING PHARMACY ID) (Divalproex Sodium [Depakote] 125 MG) PO SCH (18:00)
[2017-02-22] MEDS ORDERED: DIVALPROEX SODIUM 250 MG TAB.SR.24H PO SCH (18:00)
[2017-02-22] MEDS: ATORVASTATIN CALCIUM 40 MG TABLET PO SCH (22:28)
[2017-02-22] MEDS: FAMOTIDINE INJ/PF 20 MG/2 ML SDV IV SCH (22:28)
[2017-02-22] MEDS: QUETIAPINE FUMARATE 100 MG TABLET PO SCH (22:29)
[2017-02-22 23:15] LABS: CREATINE KINASE MB 0.67 ng/mL (<4.55)
[2017-02-22 23:23] LABS: TROPONIN I < 0.012 ng/mL
[2017-02-23] MEDS: LORAZEPAM 0.5 MG TABLET PO SCH ×3 (01:44→17:42)
[2017-02-23 04:16] LABS: ABSOLUTE EOSINOPHILS # (AUTO) 0.1 10^3/uL (0.0-0.6); ABSOLUTE LYMPHOCYTES (AUTO) 1.3 10^3/uL (0.5-4.7); ABSOLUTE MONOCYTES (AUTO) 0.5 10^3/uL (0.1-1.4); ABSOLUTE NEUT (AUTO) 2.5 10^3/uL (1.7-8.2); EOSINOPHILS % (AUTO) 2.7 % (0-6); HEMOGLOBIN 11.4 g/dL (12.0-15.5); HGB HCT DIFFERENCE 2.2; LYMPHOCYTES % (AUTO) 28.2 % (13-45); MEAN CORPUSCULAR HEMOGLOBIN 33.8 pg (27.0-33.4); MEAN CORPUSCULAR HGB CONC 35.5 g/dL (32.0-36.0); MEAN CORPUSCULAR VOLUME 95 fl (80-97); MONOCYTES % (AUTO) 11.9 % (3-13); RED BLOOD COUNT 3.36 10^6/uL (3.72-5.28); RED CELL DISTRIBUTION WIDTH 12.4 % (11.5-14.0); SEGMENTED NEUTROPHILS % (AUTO) 56.2 % (42-78); WHITE BLOOD COUNT 4.4 10^3/uL (4.0-10.5)
[2017-02-23 04:22] LABS: ANION GAP 10 (5-19); BLOOD UREA NITROGEN 14 mg/dL (7-20); CALCIUM 9.6 mg/dL (8.4-10.2); CARBON DIOXIDE 26 mmol/L (22-30); CHLORIDE 94 mmol/L (98-107); CHOLESTEROL 167.95 mg/dL (0-200); CREATINE KINASE 176 U/L (30-135); CREATININE RESULT 1.04 mg/dL (0.52-1.25); Direct HDL 74 mg/dL (>40); GLUCOSE 98 mg/dL (75-110); POTASSIUM 4.2 mmol/L (3.6-5.0); SODIUM 129.8 mmol/L (137-145); TRIGLYCERIDES 75 mg/dL (<150)
[2017-02-23 04:33] LABS: DIRECT LDL 74 mg/dL (<100)
[2017-02-23 04:34] LABS: CREATINE KINASE MB 1.56 ng/mL (<4.55)
[2017-02-23 04:46] LABS: TROPONIN I < 0.012 ng/mL
[2017-02-23] MEDS: QUETIAPINE FUMARATE 100 MG TABLET PO SCH ×3 (06:32→22:31)
[2017-02-23] MEDS: ARIPIPRAZOLE 5 MG TABLET PO SCH ×2 (06:32→17:42)
[2017-02-23] MEDS: TRIHEXYPHENIDYL HCL 2 MG TABLET PO SCH ×2 (06:32→17:42)
[2017-02-23] MEDS: HEPARIN SOD (PORCINE) 5,000 UNIT/ML 1 ML SYRINGE SUBCUT SCH ×3 (06:32→22:28)
[2017-02-23] MEDS ORDERED: LISINOPRIL 10 MG TABLET PO SCH (08:00)
[2017-02-23] MEDS: LANSOPRAZOLE 30 MG TAB.RAP.DR PO SCH (08:47)
[2017-02-23] MEDS: FAMOTIDINE INJ/PF 20 MG/2 ML SDV IV SCH (09:04)
--- NOTE | 2017-02-23 12:57 | RADIOLOGY REPORT (SQ) ---
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 Images stored on PACS. LIMITATIONS: None. FINDINGS: RIGHT CAROTID CCA Velocities: Within normal limits. ICA Velocities Peak systolic 1.0 m/s. End diastolic 0.15 m/s. Proximal ICA/CCA peak systolic ratio 1.7. Spectra normal. Minimal calcific plaque at the right carotid bifurcation without flow significant st enosis LEFT CAROTID CCA Velocities: Within normal limits. ICA Velocities Peak systolic 0.39 m/s. End diastolic 0.09 m/s. Proximal ICA/CCA peak systolic ratio 1.4. Spectra normal. Minimal mixed calcific and noncalcific plaque. VERTEBRAL ARTERIES: Antegrade flow. Normal waveforms. SUBCLAVIAN ARTERIES: Not evaluated OTHER: No other significant finding. IMPRESSION: NO HEMODYNAMICALLY SIGNIFICANT STENOSIS. COMMENT: Quality ID #[id number]: Velocity criteria are extrapolated from the diameter data as defined by t he Society of Radiologists in Ultrasound Consensus Conference. Radiology 2003: 229; 340-346. TECHNICAL DOCUMENTATION: JOB ID: [id number] [employer]- All Rights Reserved
[2017-02-23] MEDS ORDERED: ONDANSETRON HCL INJ/PF 4 MG/2 ML SDV IV PRN (13:28)
[2017-02-23] MEDS ORDERED: CETIRIZINE 10 MG TABLET PO PRN (13:30)
[2017-02-23] MEDS ORDERED: ASPIRIN 325 MG TABLET PO ONE (13:30)
[2017-02-23] MEDS: LABETALOL HCL INJ 20 MG/4 ML DISP.SYRIN IV PRN (13:36)
--- NOTE | 2017-02-23 13:46 | PDOC PROGRESS REPORT ---
Subjective Progress Note for:: 02/23/17 Subjective:: Patient is still not verbal. Unable to obtain review of systems secondary to this. patient sister is present at bedside Physical Exam Vital Signs: Temp Pulse Resp BP Pulse Ox 98.8 F 67 12 175/89 H 99 02/23/17 04:37 02/23/17 04:37 02/23/17 04:37 02/23/17 04:37 02/23/17 04:37 Intake & Output 02/22/17 02/23/17 02/24/17 06:59 06:59 06:59 Intake Total 10 Output Total 0 Balance 10 Weight 60.7 kg Exam: General: Awake alert, but nonverbal; no acute respiratory distress HEENT: AT/NC, PERRL, EOMI, oropharynx is moist, pink, no scleral icterus, no conjunctival injection Neck: No JVD, trachea midline Chest: Clear to auscultation bilaterally, no wheezes rhonchi or rales CV: Regular rate and rhythm, normal S1 and S2, no rub or gallop Abdomen: Soft, nontender to palpation, nondistended, active bowel sounds; no rebound, rigidity, or guarding Extremities: No cyanosis, clubbing or edema Neuro: right sided weakness, limited by patient participation, right sided weakness, expressive aphasia; tardive dyskinesia Psych: flat mood and affect Results Laboratory Results: 02/23/17 03:53 02/23/17 03:53 02/23/17 02/23/17 03:53 03:53 WBC 4.4 RBC 3.36 L Hgb 11.4 L Hct 32.0 L MCV 95 MCH 33.8 H MCHC 35.5 RDW 12.4 Plt Count 173 Seg Neutrophils % 56.2 Lymphocytes % 28.2 Monocytes % 11.9 Eosinophils % 2.7 Basophils % 1.0 Absolute Neutrophils 2.5 Absolute Lymphocytes 1.3 Absolute Monocytes 0.5 Absolute Eosinophils 0.1 Absolute Basophils 0.0 Sodium 129.8 L Potassium 4.2 Chloride 94 L Carbon Dioxide 26 Anion Gap 10 BUN 14 Creatinine 1.04 Est GFR ( Amer) > 60 Est GFR (Non-Af Amer) 51 L Glucose 98 Calcium 9.6 Triglycerides 75 Cholesterol 167.95 LDL Cholesterol Direct 74 VLDL Cholesterol 15.0 HDL Cholesterol 74 08/02/17 08/02/17 08/02/17 15:42 15:42 21:53 Creatine Kinase 39 67 CK-MB (CK-2) 0.77 Troponin I < 0.012 02/22/17 02/23/17 02/23/17 21:53 03:53 03:53 Creatine Kinase 176 H CK-MB (CK-2) 0.67 1.56 Troponin I < 0.012 < 0.012 Impressions: Chest X-Ray 02/22/17 10:39 IMPRESSION: Borderline cardiomegaly with chronic interstitial lung changes. Head CT 02/22/17 10:39 IMPRESSION: 1. Involutional changes of aging with chronic microvascular ischemic disease. 2. Questionable loss of werner/white differentiation in the right parietal lobe could indicate a developing infarct. Correlate clinically. Assessment & Plan - Diagnosis (1) TIA (transient ischemic attack) Qualifiers: Transient cerebral ischemia type: unspecified Qualified Code(s): G45.9 - Transient cerebral ischemic attack, unspecified Is this a current diagnosis for this admission?: YesPlan: Patient with transient what is reported to be right-sided flaccid paralysis by EMS and consistent with my examination of right-sided weakness, but left-sided weakness according to family with possible new CVA. Patient also has possible evolution of right-sided parietal stroke. Appreciate PT, OT, and speech consults. Place patient on Aspirin 325mg po daily, lipitor, and continue to work on patient BP management. Add clonidine patch Sister reports she has been weak on that side for sometime (2) Schizophrenia Qualifiers: Schizophrenia type: unspecified Qualified Code(s): F20.9 - Schizophrenia, unspecified Is this a current diagnosis for this admission?: YesPlan: Continue patient's home medications including Abilify, Ativan, and Seroquel (3) Hypertensive emergency Is this a current diagnosis for this admission?: YesPlan: Place patient on labetalol 20 mg IV q. 10 minutes as needed systolic blood pressure greater than 180. Increase lisinopril to 20mg po bid Add clonidine 0.1mg TD qweek (4) HTN (hypertension) Qualifiers: Hypertension type: essential hypertension Qualified Code(s): I10 - Essential (primary) hypertension Is this a current diagnosis for this admission?: Yes (5) Tardive dyskinesia Is this a current diagnosis for this admission?: YesPlan: Continue trihexylphenadyl (6) Hyponatremia Is this a current diagnosis for this admission?: YesPlan: Appears to be post renal Will obtain serum and urine osmolality obtain renal ultrasound and bladder scan (7) Anemia Qualifiers: Anemia type: unspecified type Qualified Code(s): D64.9 - Anemia, unspecified Is this a current diagnosis for this admission?: YesPlan: Defer to outpatient workup - Time Time Spent with patient: 25-34 minutes Medications reviewed and adjusted accordingly: Yes Anticipated discharge: SNF Within: within 24 hours - Inpatient Certification Based on my medical assessment, after consideration of the patient's comorbidities, presenting symptoms, or acuity I expect that the services needed warrant INPATIENT care.: Yes I certify that my determination is in accordance with my understanding of Medicare's requirements for reasonable and necessary INPATIENT services [42 CFR 412.3e].: Yes Medical Necessity: Need For Continuous Telemetry Monitoring Post Hospital Care: D/C Stiff Leg Operator Documentation
[2017-02-23] MEDS ORDERED: CLONIDINE 0.1 MG/24 HR PATCH.TDWK TD ONE (14:00)
[2017-02-23] MEDS ORDERED: DIPHENHYDRAMINE HCL 50 MG/ML VIAL IV ONE (15:50)
[2017-02-23] MEDS ORDERED: LORAZEPAM INJ 2 MG/1 ML VIAL IV ONE (15:50)
[2017-02-23] MEDS: LISINOPRIL 10 MG TABLET PO SCH (22:25)
[2017-02-23] MEDS: ATORVASTATIN CALCIUM 40 MG TABLET PO SCH (22:27)
[2017-02-23] MEDS: FAMOTIDINE 20 MG TABLET PO SCH (22:32)
[2017-02-24] MEDS: DIPHENHYDRAMINE HCL 25 MG CAPSULE PO PRN (00:40)
[2017-02-24] MEDS: LORAZEPAM 0.5 MG TABLET PO SCH ×3 (02:56→17:34)
[2017-02-24] MEDS: LABETALOL HCL INJ 20 MG/4 ML DISP.SYRIN IV PRN (04:43)
[2017-02-24] MEDS: HEPARIN SOD (PORCINE) 5,000 UNIT/ML 1 ML SYRINGE SUBCUT SCH ×3 (06:20→23:12)
[2017-02-24] MEDS: ARIPIPRAZOLE 5 MG TABLET PO SCH ×2 (06:21→17:34)
[2017-02-24] MEDS: QUETIAPINE FUMARATE 100 MG TABLET PO SCH ×3 (06:22→23:12)
[2017-02-24] MEDS: TRIHEXYPHENIDYL HCL 2 MG TABLET PO SCH ×2 (06:22→17:35)
--- NOTE | 2017-02-24 07:35 | RADIOLOGY REPORT (SQ) ---
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 TECHNIQUE: Dynamic and static grayscale images acquired of the kidneys and bladder and recorded on P ACS. Additional selected color Doppler and spectral images recorded. LIMITATIONS: None. FINDINGS: RIGHT KIDNEY: 8.1 cm. Normal size. Normal echogenicity. No solid or suspicious masses. No hydronephrosis. No calcifications. LEFT KIDNEY: 8.6 cm. Normal size. Normal echogenicity. No solid or suspicious masses. No hydronephr osis. No calcifications. BLADDER: No masses. Bilateral ureteral jet flow demonstrated. OTHER FINDINGS: No other significant finding. IMPRESSION: NORMAL RENAL AND BLADDER ULTRASOUND. TECHNICAL DOCUMENTATION: JOB ID: [id number] [employer]- All Rights Reserved
--- NOTE | 2017-02-24 09:01 | RADIOLOGY REPORT (SQ) ---
EXAM DESCRIPTION: CHEST SINGLE VIEW COMPLETED DATE/TIME: 02/24/2017 8:50 am REASON FOR STUDY: tachypnea COMPARISON: Chest films 02/16/2009, 08/18/2012, 08/25/2015, 01/30/2017, 02/22/2017 EXAM PARAMETERS: NUMBER OF VIEWS: One view. TECHNIQUE: Single frontal radiographic view of the chest acquired. RADIATION DOSE: NA LIMITATIONS: None. FINDINGS: LUNGS AND PLEURA: Bilateral upper lobes are hyperlucent. Stable bandlike scarring or atel ectasis at both bases. No new no fluffy alveolar infiltrates worrisome for pneumonia or pulmonary edema. No pleural effusion. No pneumothorax. MEDIASTINUM AND HILAR STRUCTURES: No masses. Contour normal. HEART AND VASCULAR STRUCTURES: Heart normal in size. Normal vasculature. BONES: No acute findings. HARDWARE: None in the chest. OTHER: No other significant finding. IMPRESSION: No acute findings. Bandlike scarring or atelectasis at both bases. Upper lobes hyperlu cent. TECHNICAL DOCUMENTATION: JOB ID: [id number]
[2017-02-24] MEDS: ASPIRIN 325 MG TABLET PO SCH (11:54)
[2017-02-24] MEDS: LISINOPRIL 10 MG TABLET PO SCH ×2 (11:55→23:12)
[2017-02-24] MEDS: FAMOTIDINE 20 MG TABLET PO SCH ×2 (11:56→23:12)
[2017-02-24] MEDS: LANSOPRAZOLE 30 MG TAB.RAP.DR PO SCH (11:57)
--- NOTE | 2017-02-24 12:12 | PDOC TRANSFER SUMMARY ---
General - Admit/Disc Date/PCP Admission Date/Primary Care Provider: 02/22/17 13:54 MAYA BHAKTA PA-C Discharge Date: 02/24/17 - Discharge Diagnosis (1) TIA (transient ischemic attack) Is this a current diagnosis for this admission?: Yes (2) Schizophrenia Is this a current diagnosis for this admission?: Yes (3) Hypertensive emergency Is this a current diagnosis for this admission?: Yes (4) HTN (hypertension) Is this a current diagnosis for this admission?: Yes (5) Tardive dyskinesia Is this a current diagnosis for this admission?: Yes (6) Hyponatremia Is this a current diagnosis for this admission?: Yes (7) Anemia Is this a current diagnosis for this admission?: Yes - Additional Information Resuscitation Status: Full Code Discharge Diet: Cardiac, Other (Comments) - pureed with thin liquids, 1:1 assist , aspiration precautions Discharge Activity: Activity As Tolerated, Slowly Increase Activity, Supervised Activity Home Medications: Acetaminophen [Mapap] 500 mg PO Q4HP PRN MDD 199902/22/17 Albuterol Sulfate [Albuterol Sulfate 2.5mg/3 mL] 1 vial IH Q4HP PRN 02/22/17 Aripiprazole [Abilify 15 mg Tablet] 15 mg PO Q12A 02/22/17 Cetirizine HCl [Zyrtec] 10 mg PO DAILYP PRN 02/22/17 Cyanocobalamin (Vitamin B-12) [Vitamin B-12 Inj 1000 Mcg/1 ml Vial] 1,000 mcg IM .MONTHLY 02/22/17 Diphenhydramine HCl [Benadryl] 25 mg PO Q6HP PRN 02/22/17 Divalproex Sodium [Depakote] 125 mg PO QPM 02/22/17 Docusate Sodium [Colace 100 mg Capsule] 100 mg PO DAILY 02/22/17 Lisinopril [Zestril] 10 mg PO QAM 02/22/17 Loperamide HCl [Loperamide] 2 mg PO DAILYP PRN 02/22/17 Lorazepam [Ativan 0.5 mg Tablet] 0.5 mg PO Q8A 02/22/17 Magnesium Hydroxide [Milk of Magnesia 30 ml Udcup] 30 ml PO QPMP PRN 02/22/17 Omeprazole 40 mg PO QAM 02/22/17 Quetiapine Fumarate [Seroquel 100 mg Tablet] 100 mg PO Q8A 02/22/17 Trihexyphenidyl HCl 1 mg PO Q12A 02/22/17 Aspirin [Aspirin 325 mg Tablet] 325 mg PO DAILY #90 tablet 02/24/17 Atorvastatin Calcium [Lipitor 40 mg Tablet] 40 mg PO QHS #30 tablet 02/24/17 Clonidine [Catapres-Tts 1 (0.1 mg/24 Hr) Transderm Patch] 1 each TD Th@10 #4 patch.tdwk 02/24/17 Lisinopril 20 mg PO Q12 #60 tablet 02/24/17 History of Present Illness Admission Date/PCP: 02/22/17 13:54 MAYA BHAKTA PA-C History of Present Illness: JÚNIOR LICONA is a 76 year old female with a past medical history of hypertension, schizophrenia, hyperlipidemia, and questionable mental retardationWho presents to the emergency department in the company of her sister via EMS. Sister reports that she was taking nail kazakh off of her fingernails when patient began having difficulty using her left hand. She then states that her eyes rolled into the back of her head and she has not been talking since that time. She reports that since approximate this happened at 930 this morning and she is only now when I saw her at 3 PM speaking. She reports that patient has been unable to care for herself last 5 years. She reports that over the last several months she is going more feeble. Patient is referred to the hospitalist service for likely CVA. Hospital Course Hospital Course: Due to patient's mental status, she was unable to tolerate MRI. Patient was continued on IMCU admission and monitor on telemetry. Patient had no events on monitor. Patient most likely suffered an acute CVA. Patient sister reports that she has been chronically weak on this right side prior to admission. Rehabilitation has been limited with patient due to her underlying psychiatric illness. Patient did require sedation with Ativan. Patient's home medications were continued here. Speech therapy saw this patient and felt that she would be better served with a pured diet with thin with aspiration precautions. She is to continue therapy with PT, OT, and speech. Physical Exam Vital Signs: Temp Pulse Resp BP Pulse Ox 97.4 F 70 30 H 182/75 H 96 02/24/17 04:23 02/24/17 04:23 02/24/17 04:23 02/24/17 04:23 02/24/17 04:23 Intake & Output 02/23/17 02/24/17 02/25/17 06:59 06:59 06:59 Intake Total 10 164 Output Total 0 Balance 10 164 Weight 60.7 kg 62.8 kg Exam: General: Awake alert, but nonverbal; no acute respiratory distress HEENT: AT/NC, PERRL, EOMI, oropharynx is moist, pink, no scleral icterus, no conjunctival injection Neck: No JVD, trachea midline Chest: Clear to auscultation bilaterally, no wheezes rhonchi or rales CV: Regular rate and rhythm, normal S1 and S2, no rub or gallop Abdomen: Soft, nontender to palpation, nondistended, active bowel sounds; no rebound, rigidity, or guarding Extremities: No cyanosis, clubbing or edema Neuro: right sided weakness, limited by patient participation, right sided weakness, expressive aphasia; tardive dyskinesia Psych: flat mood and affect Results Laboratory Results: 02/23/17 03:53 02/23/17 03:53 02/23/17 03:53 Serum Osmolality 270 L 02/22/17 02/22/17 02/22/17 15:42 15:42 21:53 Creatine Kinase 39 67 CK-MB (CK-2) 0.77 Troponin I < 0.012 02/22/17 02/23/17 02/23/17 21:53 03:53 03:53 Creatine Kinase 176 H CK-MB (CK-2) 0.67 1.56 Troponin I < 0.012 < 0.012 Impressions: Chest X-Ray 02/22/17 10:39 IMPRESSION: Borderline cardiomegaly with chronic interstitial lung changes. Head CT 02/22/17 10:39 IMPRESSION: 1. Involutional changes of aging with chronic microvascular ischemic disease. 2. Questionable loss of werner/white differentiation in the right parietal lobe could indicate a developing infarct. Correlate clinically. Carotid Doppler Study 02/23/17 00:00 IMPRESSION: NO HEMODYNAMICALLY SIGNIFICANT STENOSIS. Renal Ultrasound 02/24/17 00:00 IMPRESSION: NORMAL RENAL AND BLADDER ULTRASOUND. Status: Imported from PACS Transfer Plan - Time Spent with Patient Time spent with patient: Greater than 30 Minutes Qualifiers PATEINT BEING DISCHARGED WITH ANY OF THE FOLLOWING DIAGNOSIS?: Stroke Stroke Pt being discharged on Anti-thrombolytic therapy?: Yes Stroke Pt being discharged on Anti-coagulation therapy?: No Reason(s) for not prescribing Anti-coagulation therapy:: Not indicated - no-afib Stroke Pt being discharged on Statins?: Yes Plan Time Spent: Greater than 30 Minutes
--- NOTE | 2017-02-24 16:37 | Progress Note ---
Provider Note Provider Note: Addendum to Transfer Summary: Please remove old Lisinopril 10mg po daily and replace with Lisinopril 20mg po Q12. Diet: pureed with thin liquids; aspiration precautions; please crush pills
[2017-02-24] MEDS: ATORVASTATIN CALCIUM 40 MG TABLET PO SCH (23:12)
[2017-02-25] MEDS: LORAZEPAM 0.5 MG TABLET PO SCH ×2 (01:11→10:26)
[2017-02-25] MEDS: DIPHENHYDRAMINE HCL 25 MG CAPSULE PO PRN (01:33)
[2017-02-25] MEDS: HEPARIN SOD (PORCINE) 5,000 UNIT/ML 1 ML SYRINGE SUBCUT SCH (05:58)
[2017-02-25] MEDS: QUETIAPINE FUMARATE 100 MG TABLET PO SCH (06:02)
[2017-02-25] MEDS: ARIPIPRAZOLE 5 MG TABLET PO SCH (06:03)
[2017-02-25] MEDS: TRIHEXYPHENIDYL HCL 2 MG TABLET PO SCH (06:03)
[2017-02-25] MEDS ORDERED: NORMAL SALINE 1000 ML 1,000 ML IV ONE (07:24)
[2017-02-25 08:18] LABS: ABSOLUTE EOSINOPHILS # (AUTO) 0.3 10^3/uL (0.0-0.6); ABSOLUTE LYMPHOCYTES (AUTO) 1.2 10^3/uL (0.5-4.7); ABSOLUTE MONOCYTES (AUTO) 0.5 10^3/uL (0.1-1.4); ABSOLUTE NEUT (AUTO) 3.2 10^3/uL (1.7-8.2); BASOPHILS % (AUTO) 0.4 % (0-2); HEMATOCRIT 34.6 % (36.0-47.0); HGB HCT DIFFERENCE 1.4; LYMPHOCYTES % (AUTO) 23.6 % (13-45); MEAN CORPUSCULAR HEMOGLOBIN 33.1 pg (27.0-33.4); MEAN CORPUSCULAR HGB CONC 34.6 g/dL (32.0-36.0); MEAN CORPUSCULAR VOLUME 96 fl (80-97); MONOCYTES % (AUTO) 9.3 % (3-13); RED BLOOD COUNT 3.62 10^6/uL (3.72-5.28); RED CELL DISTRIBUTION WIDTH 12.8 % (11.5-14.0); SEGMENTED NEUTROPHILS % (AUTO) 61.7 % (42-78); WHITE BLOOD COUNT 5.1 10^3/uL (4.0-10.5)
[2017-02-25 08:28] LABS: ANION GAP 12 (5-19); BLOOD UREA NITROGEN 19 mg/dL (7-20); CALCIUM 9.7 mg/dL (8.4-10.2); CARBON DIOXIDE 25 mmol/L (22-30); CHLORIDE 95 mmol/L (98-107); CREATININE RESULT 1.09 mg/dL (0.52-1.25); GLUCOSE 160 mg/dL (75-110); POTASSIUM 4.3 mmol/L (3.6-5.0); SODIUM 132.2 mmol/L (137-145)
[2017-02-25] MEDS ORDERED: LISINOPRIL 10 MG TABLET PO SCH (10:00)
[2017-02-25] MEDS: ASPIRIN 325 MG TABLET PO SCH (10:26)
[2017-02-25] MEDS: LANSOPRAZOLE 30 MG TAB.RAP.DR PO SCH (10:26)
[2017-02-25] MEDS: FAMOTIDINE 20 MG TABLET PO SCH (10:26)
[2017-02-25] MEDS ORDERED: LOPERAMIDE HCL 2 MG CAPSULE PO ONE (11:05)
--- NOTE | 2017-02-25 11:08 | PDOC PROGRESS REPORT ---
Subjective Progress Note for:: 02/25/17 Subjective:: Patient is still minimally verbal. Unable to obtain review of systems secondary to this. patient sister is present at bedside Physical Exam Vital Signs: Temp Pulse Resp BP Pulse Ox 97.5 F 77 20 142/59 H 97 02/25/17 07:25 02/25/17 07:25 02/25/17 07:25 02/25/17 07:25 02/25/17 07:25 Intake & Output 02/24/17 02/25/17 02/26/17 06:59 06:59 06:59 Intake Total 164 582 Balance 164 582 Weight 62.8 kg Exam: General: Awake alert, but nonverbal; no acute respiratory distress HEENT: AT/NC, PERRL, EOMI, oropharynx is moist, pink, no scleral icterus, no conjunctival injection Neck: No JVD, trachea midline Chest: Clear to auscultation bilaterally, no wheezes rhonchi or rales CV: Regular rate and rhythm, normal S1 and S2, no rub or gallop Abdomen: Soft, nontender to palpation, nondistended, active bowel sounds; no rebound, rigidity, or guarding Extremities: No cyanosis, clubbing or edema Neuro: right sided weakness, limited by patient participation, right sided weakness, expressive aphasia; tardive dyskinesia Psych: flat mood and affect Results Laboratory Results: 02/25/17 07:52 02/25/17 07:52 02/25/17 02/25/17 07:52 07:52 WBC 5.1 RBC 3.62 L Hgb 12.0 Hct 34.6 L MCV 96 MCH 33.1 MCHC 34.6 RDW 12.8 Plt Count 195 Seg Neutrophils % 61.7 Lymphocytes % 23.6 Monocytes % 9.3 Eosinophils % 5.0 Basophils % 0.4 Absolute Neutrophils 3.2 Absolute Lymphocytes 1.2 Absolute Monocytes 0.5 Absolute Eosinophils 0.3 Absolute Basophils 0.0 Sodium 132.2 L Potassium 4.3 Chloride 95 L Carbon Dioxide 25 Anion Gap 12 BUN 19 Creatinine 1.09 Est GFR ( Amer) 59 L Est GFR (Non-Af Amer) 49 L Glucose 160 H Calcium 9.7 02/22/17 02/22/17 02/22/17 15:42 15:42 21:53 Creatine Kinase 39 67 CK-MB (CK-2) 0.77 Troponin I < 0.012 02/22/17 02/23/17 02/23/17 21:53 03:53 03:53 Creatine Kinase 176 H CK-MB (CK-2) 0.67 1.56 Troponin I < 0.012 < 0.012 Impressions: Head CT 02/22/17 10:39 IMPRESSION: 1. Involutional changes of aging with chronic microvascular ischemic disease. 2. Questionable loss of werner/white differentiation in the right parietal lobe could indicate a developing infarct. Correlate clinically. Carotid Doppler Study 02/23/17 00:00 IMPRESSION: NO HEMODYNAMICALLY SIGNIFICANT STENOSIS. Chest X-Ray 02/24/17 00:00 IMPRESSION: No acute findings. Bandlike scarring or atelectasis at both bases. Upper lobes hyperlucent. Renal Ultrasound 02/24/17 00:00 IMPRESSION: NORMAL RENAL AND BLADDER ULTRASOUND. Assessment & Plan - Diagnosis (1) TIA (transient ischemic attack) Qualifiers: Transient cerebral ischemia type: unspecified Qualified Code(s): G45.9 - Transient cerebral ischemic attack, unspecified Is this a current diagnosis for this admission?: Yes (2) Schizophrenia Qualifiers: Schizophrenia type: unspecified Qualified Code(s): F20.9 - Schizophrenia, unspecified Is this a current diagnosis for this admission?: Yes (3) Hypertensive emergency Is this a current diagnosis for this admission?: Yes (4) HTN (hypertension) Qualifiers: Hypertension type: essential hypertension Qualified Code(s): I10 - Essential (primary) hypertension Is this a current diagnosis for this admission?: Yes (5) Tardive dyskinesia Is this a current diagnosis for this admission?: Yes (6) Hyponatremia Is this a current diagnosis for this admission?: Yes (7) Anemia Qualifiers: Anemia type: unspecified type Qualified Code(s): D64.9 - Anemia, unspecified Is this a current diagnosis for this admission?: Yes - Plan Summary Plan Summary: Patient has been evaluated by facility and they are ok taking her back. Will discharge to [facility] with home health. Patient doing well medically. Good BP control. No changes to discharge summary and provider note at this time.
[2017-02-25 12:08] VITALS: BP 174/72
[2017-03-02] MEDS ORDERED: CLONIDINE 0.1 MG/24 HR PATCH.TDWK TD SCH (10:00)
== END 2017-02-25 13:16 | DRG 69 ==
LOC: ER 10:38 → UNDOADMOB 13:05 → EH 13:05 → OBSVTOIN 13:54 → 3N 15:21
PROVIDERS: ADMIT Family Medicine; ATTEND Family Medicine
DX: G45.9 Transient cerebral ischemic attack, unspecified (principal); I16.1 Hypertensive emergency; E87.1 Hypo-osmolality and hyponatremia; E11.9 Type 2 diabetes mellitus without complications; F20.9 Schizophrenia, unspecified; G24.01 Drug induced subacute dyskinesia; D64.9 Anemia, unspecified; K21.9 Gastro-esophageal reflux disease without esophagitis; E78.5 Hyperlipidemia, unspecified; Z79.899 Other long term (current) drug therapy; Z79.82 Long term (current) use of aspirin; F31.9 Bipolar disorder, unspecified
CPT/HCPCS: 36415; 70450; 71010; 76770; 80048; 80053; 80061; 81001; 82550; 82553; 82570; 82962; 83036; 83930; 84300; 84484; 85025; 85610; 85730; 87086; 93005; 93010; 93880; 96374; 96375; 99291; G8978-GP; G8979-GP; G8987-GO; G8988-GO; G8989-GO; G8996-GN; G8997-GN; J1200; J1644; J2060; J3490; J7030; S0028

== ENCOUNTER 2017-02-28 23:45 | Emergency (ER) | payer MEDICARE, MEDICAID ==
--- NOTE | 2017-03-01 00:12 | ER Document Report ---
ED General - General Stated Complaint: FALL Time Seen by Provider: 03/01/17 00:05 Notes: Patient is a 76-year-old female presents with complaint of a fall at the snf. She does have history of stroke. Patient currently denies any pain. She initially complained of some hip pain to the staff. She told EMS that she did not have any complaints or pain. She denies headache or head pain. No neck pain. She has no other complaints at this time. TRAVEL OUTSIDE OF THE [place] IN LAST 30 DAYS: No - Related Data Allergies/Adverse Reactions: No Known Allergies Allergy (Verified 04/09/15 12:40) Past Medical History - Social History Smoking Status: Never Smoker Frequency of alcohol use: None Drug Abuse: None Family History: Reviewed & Not Pertinent - Past Medical History Cardiac Medical History: Reports: Hx Hypercholesterolemia, Hx Hypertension Pulmonary Medical History: Reports: Hx Pneumonia Denies: Hx Tuberculosis Endocrine Medical History: Reports: Hx Diabetes Mellitus Type 2 Renal/ Medical History: Denies: Hx Peritoneal Dialysis GI Medical History: Reports: Hx Gastroesophageal Reflux Disease Psychiatric Medical History: Reports: Hx Anxiety, Hx Bipolar Disorder, Hx Depression, Hx Schizophrenia Traumatic Medical History: Reports: Hx Spine Fracture - Compression lumbar fracture Past Surgical History: Reports: Hx Tubal Ligation, Other - Cataract surgery - Immunizations Hx Diphtheria, Pertussis, Tetanus Vaccination: Yes Hx Pneumococcal Vaccination: 04/23/10 Review of Systems - Review of Systems Notes: My Normal Review Basic REVIEW OF SYSTEMS: CONSTITUTIONAL : Denies fever, chills, or sweats. Denies recent illness. RESPIRATORY: No difficulty breathing. MUSCULOSKELETAL: Denies neck or back pain or joint pain or swelling. SKIN: Denies rash or skin lesions. NEUROLOGICAL: Denies headache ALL OTHER SYSTEMS REVIEWED AND NEGATIVE. Physical Exam - Notes Notes: General Appearance: Well nourished, alert, cooperative, no acute distress, no obvious discomfort. Well-appearing. Vitals: reviewed, See vital signs table. Head: no swelling or tenderness to the head Eyes: PERRL, EOMI, Conjuctiva clear Neck: Supple, no neck tenderness, no step-offs or deformities. Back: No tenderness to palpation of thoracic or lumbar spine. No step-offs or deformities. Lungs: No wheezing, No rales, No rhonci, No accessory muscle use, good air exchange bilaterally. Heart: Normal rate, Regular rythm, No murmur, no rub Abdomen: Normal BS, soft, No rigidity, No abdominal tenderness, No guarding, no rebound, no abdominal masses, no organomegaly Extremities: strength 5/5 in all extremities, good pulses in all extremities, no swelling or tenderness in the extremities, no pain with full range of motion of either the right or left hip. No edema. Pelvis is stable. Very mild pain when I push in the pelvis itself. Skin: warm, dry, appropriate color, no rash Neuro: speech clear, oriented x 2, normal affect, patient at times will answer my questions. Sometimes she chooses not to. Whenever she does answer my questions she does appear to answer them correctly. She has noticed stress. Cranial nerves II through XII appear to be grossly intact. Course - Re-evaluation Re-evalutation: 03/01/17 01:55 Patient has no concerning findings on evaluation. She denies any pain at this time. She has no bruising or swelling to the head. She denies a headache. The only blood thinner she is on his aspirin. I do not feel that she needs a CT scan at this time as there is no significant indication. Patient was discharged back to snf. She is to return to the ER if she has severe headache, vomiting, change in mental status, or appears to be in pain. Dictation of this chart was performed using voice recognition software; therefore, there may be some unintended grammatical errors. Discharge - Discharge Clinical Impression: Fall Qualifiers: Encounter type: initial encounter Qualified Code(s): W19.XXXA - Unspecified fall, initial encounter Condition: Good Disposition: HOME, SELF-CARE Additional Instructions: Please return to the ER immediately if Mrs. Yu develops severe headache, vomiting, change in mental status or appears to be in pain.
--- NOTE | 2017-03-01 01:50 | RADIOLOGY REPORT (SQ) ---
EXAM DESCRIPTION: PELVIS AP COMPLETED DATE/TIME: 03/01/2017 1:04 am REASON FOR STUDY: fall COMPARISON: CR, L-spine, 10/08/2016. NUMBER OF VIEWS: One view TECHNIQUE: AP Pelvis LIMITATIONS: None. FINDINGS: MINERALIZATION: Normal. HIPS: No acute fracture or dislocation. No worrisome bone lesions. PELVIS AND SACRUM: No acute fracture or dislocation. No worrisome bone lesions. PUBIS AND ISCHIUM: No acute fracture. LOWER LUMBAR SPINE: Moderate L4 compression deformity, chronic. SOFT TISSUES: No findings. OTHER: Moderate colonic stool retention. IMPRESSION: NEGATIVE STUDY OF THE PELVIS. Chronic, moderate L4 compression deformity. TECHNICAL DOCUMENTATION: JOB ID: [id number] [employer]- All Rights Reserved
[2017-03-01 03:18] VITALS: BP 158/59
== END 2017-03-01 03:21 | disposition home or self-care (01) ==
LOC: ER 23:45
DX: M25.559 Pain in unspecified hip (principal); W19.XXXA Unspecified fall, initial encounter; E78.00 Pure hypercholesterolemia, unspecified; Y92.129 Unspecified place in nursing home as the place of occurrence of the external cause; I10 Essential (primary) hypertension; E11.9 Type 2 diabetes mellitus without complications; Z98.51 Tubal ligation status
CPT/HCPCS: 72170; 99284